=== PATIENT | female | born 1970 | race Caucasian/White ===

== ENCOUNTER 2017-05-07 14:53 | Inpatient (IN) ==
[2017-05-07] MEDS ORDERED: 0.9 % SODIUM CHLORIDE 2,000 ML IV ONE (14:59)
[2017-05-07] MEDS ORDERED: PANTOPRAZOLE 40 MG VIAL IV ONE (14:59)
[2017-05-07] MEDS ORDERED: 0.9 % SODIUM CHLORIDE 250 ML IV SCH ×3 (15:00→18:30)
[2017-05-07] MEDS ORDERED: PANTOPRAZOLE 80 MG in 0.9 % SODIUM CHLORIDE 100 ML IV SCH (15:00)
[2017-05-07 15:48] LABS: Basophils # (Auto) 0 K/mcL (0.0-0.3); Basophils % (Auto) 0.1 % (0.0-2.0); Eosinophils # (Auto) 0.1 K/mcL (0.0-0.7); Eosinophils % (Auto) 0.7 % (0.0-7.0); Granulocytes % (Auto) 79.1 % (38.0-78.0); Lymphocytes # (Auto) 1.9 K/mcL (1.5-4.8); Lymphocytes % (Auto) 14.4 % (15.5-49.0); Mean Cell Volume 62.1 fL (80.0-100.0); Mean Corpuscular HGB Conc 30.2 g/dL (31.0-36.0); Mean Corpuscular Hemoglobin 18.7 pg (26.0-34.0); Monocytes # (Auto) 0.8 K/mcL (0.1-0.9); Monocytes % (Auto) 5.7 % (1.0-12.0); Platelet Count 267 K/mcL (140-440); Red Cell Distribution Width 26.3 % (11.5-14.5)
[2017-05-07 15:59] LABS: ALT/SGPT 311 U/l (0-40); Albumin 3.4 gm/dL (3.2-5.2); Albumin/Globulin Ratio 1.2 (1.0-2.3); Alkaline Phosphatase 96 U/L (39-117); Blood Urea Nitrogen 37 mg/dl (6-20); Lipase 119 U/L (7-60); Magnesium 2.2 mg/dL (1.6-2.5)
--- NOTE | 2017-05-07 16:10 | Emergency Department Note ---
GI Bleed HPI - General Chief complaint: Rectal Bleed Stated complaint: blood in stool,coughed up blood Time Seen by Provider: 05/07/17 14:58 Source: patient Mode of arrival: wheelchair Limitations: no limitations - History of Present Illness HPI Narrative: This 47-year-old patient was sent over by Solomon Dent at urgent care for an upper GI bleed. She was examined over there found to be pale with black stool Hemoccult positive. complaining of fatigue decreased energy and melena 5 days. Short of breath noted with some swelling in her feet and ankles. She reports vomiting up some blood clots 5 days ago as well-none since. She denies significant alcohol use saying she only drinks perhaps once per year and only takes NSAIDs every once in a while - Related Data Home Medications Medication Instructions Recorded Confirmed No Known Home Meds [No Known Home 05/07/17 05/07/17 Meds] Allergies Allergy/AdvReac Type Severity Reaction Status Date / Time Sulfa (Sulfonamide AdvReac Severe throat Verified 05/07/17 14:31 Antibiotics) swelling Review of Systems All systems ED: reviewed and negative except as stated. Past Medical History - Past Medical History Attestation: Yes: The following information was validated with the patient. Medical history: Reports: no medical history Surgical history ED: Reports: no surgical history - Social History smoking status: Current every day smoker (vapes) Alcohol use: Reports: Rarely Physical Exam Thin profoundly pale female weak and fatigued, frail and chronically ill- appearing. No acute distress. Normocephalic atraumatic. Conjunctive are clear sclerae nonicteric. No nasal discharge or congestion. Oropharynx pink and moist. Some gross hearing loss. Neck is supple without lymphadenopathy or thyromegaly. Heart is regular rhythm but tachycardic. No murmur appreciated. Lungs are clear to auscultation bilaterally without wheezes rales rhonchi or respiratory distress. Abdomen soft nontender nondistended. No peritoneal signs or guarding. Examination of the rectum shows circumferential hemorrhoid tags without current bleeding. Small amount of black stool/melena present at rectum. trace pedal edema bilaterally. Radial pulse +2 bounding. No dysarthria ataxia - General Limitations: no limitations Course Vital Signs Temperature 97.4 F 05/07/17 14:54 Pulse Rate 125 H 05/07/17 14:54 Respiratory Rate 25 H 05/07/17 14:54 Blood Pressure 108/64 05/07/17 14:54 Pulse Oximetry (%) 100 05/07/17 14:54 Temperature 97.4 F 05/07/17 14:54 Pulse Rate 109 H 05/07/17 16:29 Respiratory Rate 24 H 05/07/17 16:29 Blood Pressure 123/80 05/07/17 16:29 Pulse Oximetry (%) 100 05/07/17 16:29 GI Bleed - Lab Data Lab results reviewed: Yes I reviewed the patient's lab results. Result diagrams: 05/07/17 15:10 05/07/17 15:10 Lab Results 05/07/17 05/07/17 05/07/17 Range/Units 15:10 15:10 15:10 WBC 13.5 H (4.5-11.0) K/mcL RBC 1.80 L (4.00-5.20) M/mcL Hgb 3.4 L* (12.0-15.0) g/dL Hct 11.2 L* (36.0-48.0) % POC Hct < 15.0 L* (36.0-48.0) % MCV 62.1 L (80.0-100.0) fL MCH 18.7 L (26.0-34.0) pg MCHC 30.2 L (31.0-36.0) g/dL RDW 26.3 H (11.5-14.5) % Plt Count 267 (140-440) K/mcL MPV 9.8 (7.4-10.4) fL Gran % 79.1 H (38.0-78.0) % Lymph % (Auto) 14.4 L (15.5-49.0) % Platte % (Auto) 5.7 (1.0-12.0) % Eos % (Auto) 0.7 (0.0-7.0) % Baso % (Auto) 0.1 (0.0-2.0) % Gran # 10.7 H (1.8-8.0) K/mcL Lymph # (Auto) 1.9 (1.5-4.8) K/mcL Platte # (Auto) 0.8 (0.1-0.9) K/mcL Eos # (Auto) 0.1 (0.0-0.7) K/mcL Baso # (Auto) 0 (0.0-0.3) K/mcL POC PT (11.9-14.5) sec POC INR (0.9-1.2) VBG Lactic Acid 6.6 H* (0.5-2.2) mmol/L POC Sodium 125 L (133-145) mmol/L Sodium 122 L (133-145) mmol/L POC Potassium 4.0 (3.3-5.1) mmol/L Potassium 4.0 (3.3-5.1) mmol/L POC Chloride 92 L (96-108) mmol/L Chloride 87 L (96-108) mmol/L Carbon Dioxide 15 L (22-30) mmol/L POC Total CO2 18 L (22-30) mmol/L Anion Gap 20.0 H (8-16) POC BUN 39 H (6-20) mg/dl BUN 37 H (6-20) mg/dl Creatinine 0.6 (0.6-1.1) mg/dl POC Creatinine 0.5 L (0.6-1.1) mg/dl GFR Calculation 109 Glucose 333 H (70-105) mg/dL POC Glucose 306 H (70-105) mg/dL Calcium 7.7 L (8.6-10.4) mg/dl POC WB Ioniz Calcium 0.99 L (1.16-1.32) mmol/L Magnesium 2.2 (1.6-2.5) mg/dL Total Bilirubin 1.4 H (0.0-1.0) mg/dL AST 382 H (0-37) U/l ALT 311 H (0-40) U/l Alkaline Phosphatase 96 (39-117) U/L Total Protein 6.2 (5.9-8.4) gm/dL Albumin 3.4 (3.2-5.2) gm/dL Globulin 2.8 (2.2-3.7) gm/dL Albumin/Globulin Ratio 1.2 (1.0-2.3) Lipase 119 H (7-60) U/L 05/07/17 Range/Units 16:14 WBC (4.5-11.0) K/mcL RBC (4.00-5.20) M/mcL Hgb (12.0-15.0) g/dL Hct (36.0-48.0) % POC Hct (36.0-48.0) % MCV (80.0-100.0) fL MCH (26.0-34.0) pg MCHC (31.0-36.0) g/dL RDW (11.5-14.5) % Plt Count (140-440) K/mcL MPV (7.4-10.4) fL Gran % (38.0-78.0) % Lymph % (Auto) (15.5-49.0) % Platte % (Auto) (1.0-12.0) % Eos % (Auto) (0.0-7.0) % Baso % (Auto) (0.0-2.0) % Gran # (1.8-8.0) K/mcL Lymph # (Auto) (1.5-4.8) K/mcL Platte # (Auto) (0.1-0.9) K/mcL Eos # (Auto) (0.0-0.7) K/mcL Baso # (Auto) (0.0-0.3) K/mcL POC PT 16.1 H (11.9-14.5) sec POC INR 1.4 H (0.9-1.2) VBG Lactic Acid (0.5-2.2) mmol/L POC Sodium (133-145) mmol/L Sodium (133-145) mmol/L POC Potassium (3.3-5.1) mmol/L Potassium (3.3-5.1) mmol/L POC Chloride (96-108) mmol/L Chloride (96-108) mmol/L Carbon Dioxide (22-30) mmol/L POC Total CO2 (22-30) mmol/L Anion Gap (8-16) POC BUN (6-20) mg/dl BUN (6-20) mg/dl Creatinine (0.6-1.1) mg/dl POC Creatinine (0.6-1.1) mg/dl GFR Calculation Glucose (70-105) mg/dL POC Glucose (70-105) mg/dL Calcium (8.6-10.4) mg/dl POC WB Ioniz Calcium (1.16-1.32) mmol/L Magnesium (1.6-2.5) mg/dL Total Bilirubin (0.0-1.0) mg/dL AST (0-37) U/l ALT (0-40) U/l Alkaline Phosphatase (39-117) U/L Total Protein (5.9-8.4) gm/dL Albumin (3.2-5.2) gm/dL Globulin (2.2-3.7) gm/dL Albumin/Globulin Ratio (1.0-2.3) Lipase (7-60) U/L - EKG Data EKG attestation: Yes I reviewed and interpreted this EKG. EKG results narrative: EKG shows sinus tachycardia 115 with an abnormal R-wave progression. Mildly long QT Critical Care Time Critical Care Time: Yes Total Critical Care Time: 30 Attestation: A total of 30 additional critical care time minutes in addition to initial evaluation and treatment. Did serial exams on her as well. That time includes examinations, orders, documentation, care coordination and treatment. I was immediately available the entire time of her hospital stay Disposition Pt seen by HOSPICE HOME HEALTH AIDE/PA only: No Clinical Impression: Upper gastrointestinal hemorrhage, Acute hyperglycemia Summary: Initially worked up for upper GI bleed with laboratory. IV fluids started . blood was ordered secondary to her extreme pallor and fatigue, along with tachypnea and tachycardia. CT scan was initially ordered but canceled after laboratory came back because of the need for resuscitation and possible urgent endoscopy (she would have had to have oral contrast for optimum imaging) O- blood was started secondary to her extreme low hemoglobin. MCV argues for acute on chronic upper GI hemorrhage. Blood pressure is stable but she is tachycardic and tachypneic which is concerning. She did have a piece of toast this morning Blood sugars also elevated-she does not have a history of diabetes. Not requiring insulin at this point Discussed case with Dr. Liao, porcelain enamel laborer, who agreed to consult on the patient after resuscitation Discussed case with Dr. Humaira Dye, hospitalist, who agreed to accept patient for further care. On repeat exam she is getting some color back with blood transfusion-continues to have stable vitals Disposition: Xfer As Inpt ([facility]) Condition: Critical
[2017-05-07] MEDS ORDERED: MIDAZOLAM 2 MG/2 ML VIAL IV SCH (17:00)
[2017-05-07] MEDS ORDERED: PROPOFOL 200 MG/20 ML VIAL IV SCH (17:00)
[2017-05-07] MEDS ORDERED: PROPOFOL 20 ML IV ONE (17:08)
[2017-05-07] MEDS ORDERED: MIDAZOLAM 2 MG/2 ML VIAL ONE (17:09)
[2017-05-07] MEDS ORDERED: NALOXONE HCL 0.4 MG/ML VIAL IV PRN (17:18)
[2017-05-07] MEDS ORDERED: LORazepam 2 MG/ML VIAL IV PRN (17:18)
[2017-05-07] MEDS ORDERED: DEXTROSE 50% 50 ML VIAL IV PRN (17:18)
[2017-05-07] MEDS ORDERED: NOREPINEPHRINE BITARTRATE 16 MG in 0.9 % SODIUM CHLORIDE 234 ML IV PRN (17:18)
[2017-05-07] MEDS ORDERED: MAGNESIUM HYDROXIDE 30 ML ORAL.SUSP PO PRN (17:18)
[2017-05-07] MEDS: MIDAZOLAM 2 MG/2 ML VIAL IV SCH ×2 (17:35→19:14)
[2017-05-07] MEDS: PROPOFOL 200 MG/20 ML VIAL IV SCH ×2 (17:35→19:14)
--- NOTE | 2017-05-07 17:57 | Internal Med History&Physical ---
Medical - H&P: HPI Patient information: Note initiated : 05/07/17 at 5:52 pm Service Date, if different from initiated Date: [] Patient: Rona Rees a 47 y/o F admitted on for Blood In Stool, Coughed Up Blood. Chief Complaint: [] History of present illness: Ms. Rees is a 47 year old female with no known significant past medical problems. She reports that she has had some intermittent stomach discomfort since about November of this year. She is not sure if she might of had black stools in the past, but does not recall black or bloody stools. 4 days ago, she started to have severe vomiting. She says she vomited violently about 9 times. Each time she brought up bright red blood. She says that she felt very weak afterwards, but was home alone, and did not want to bother her father, who was on a hunting trip. She felt too weak to drive herself to the emergency room, so she waited until he got home today, and had him bring her in. ER evaluation showed tachycardia, tachypnea, hemoglobin of 3, MCV of 62, elevated lactic acid , marked hyperglycemia. The patient was resuscitated with fluids and O- blood in the ER, and then transferred to the intensive care unit. The patient denies the use of NSAIDs or aspirin. She drinks alcohol extremely rarely. She previously smoked from age 22 until age 45, and then quit 2 years ago. She does currently smoke E cigarettes. She does not use drugs. She otherwise notes she is cold all the time. She has had some mild shortness of breath on and off for several months. She notes only occasional upper abdominal discomfort, but no nausea and no vomiting until last weekend. She says she did have some sinus symptoms about 2 weeks ago, and went to see someone who prescribed doxycycline for possible sinus infection. He has been quite fatigued, and says she can hear the blood rushing in her ears at times. She has been feeling a little dizzy. She denies headaches, new eye or ear symptoms, sore throat or cough. He denies chest pain or palpitations. She denies dysuria. Past medical history: Patient went through premature menopause at age 26. she is unaware of any chronic medical problems. Medications: B12 Occasional antihistamines Allergies: Sulfa Family history: Her father has a history of diabetes. Her mother 4 years ago with Parkinson's disease and dementia. One sister has diabetes. Another sister is alive and well. Social history: Patient is single and lives with her father. She smoked from the age of 22 until about age 45, quitting 2 years ago. She currently smokes E cigarettes, which she says she puts some sort of essence of tobacco into. She drinks alcohol extremely rarely. She does not use drugs. She does not have children. Medical - H&P: Meds Home Medications Medication Instructions Recorded Confirmed Type No Known Home Meds [No Known Home 05/07/17 05/07/17 History Meds] Allergies Allergy/AdvReac Type Severity Reaction Status Date / Time Sulfa (Sulfonamide AdvReac Severe throat Verified 05/07/17 14:31 Antibiotics) swelling Medical - H&P: Exam - Constitutional Vitals: Temp Pulse Resp BP Pulse Ox 98.9 F 113 H 26 H 135/89 100 05/07/17 17:18 05/07/17 17:18 05/07/17 17:18 05/07/17 17:18 05/07/17 17:18 Heart rate ranges from 110 -125. Blood pressure on arrival was 108/64, currently 130/86. Temperature 97.4. Respiratory rate ranges from 13-25. O2 saturation is 100% on room air. Patient is very pale, and appears fatigued. Head: Normocephalic, atraumatic. Eyes: PERRLA, EOMI, anicteric. Ears:clear Pharynx: Teeth are in good repair. Neck: Is supple, without obvious JVD, lymphadenopathy, thyromegaly, bruits. Cardiac exam: Shows regular rate and rhythm with normal S1 and S2. Tachycardic rate. No murmurs are noted. Lungs: Are clear to auscultation, without rales, rhonchi, wheezes. Abdomen: Appears slightly distended, but is soft. She has mild epigastric tenderness. There is no guarding or rebound. Bowel sounds are hypoactive. Extremities: Show no cyanosis, clubbing, edema. neurologic: She is awake and alert, calm and cooperative. Motor exam is grossly nonfocal. Skin exam: Does not show any worrisome lesions. Medical - H&P: Reslt - Labs CBC & Chem 7: 05/08/17 10:35 05/08/17 04:15 Labs: Short CBC 10/12/17 Range/Units 15:10 WBC 13.5 H (4.5-11.0) K/mcL Hgb 3.4 L* (12.0-15.0) g/dL Hct 11.2 L* (36.0-48.0) % Plt Count 267 (140-440) K/mcL BMP 05/07/17 15:10 Sodium 122 L Potassium 4.0 Chloride 87 L Carbon Dioxide 15 L BUN 37 H Creatinine 0.6 Glucose 333 H Calcium 7.7 L Liver Function 05/07/17 Range/Units 15:10 Total Bilirubin 1.4 H (0.0-1.0) mg/dL AST 382 H (0-37) U/l ALT 311 H (0-40) U/l Alkaline Phosphatase 96 (39-117) U/L Albumin 3.4 (3.2-5.2) gm/dL May 07: Blood cell count is 13,500, hemoglobin 3.4, hematocrit 11.2, RDW 26, platelets 267,000. Differential shows 79% granulocytes absolute granulocyte count 10,700. Pro time is 16 with INR of 1.4 next Lactic acid is elevated at 6.6 Chemistry panel: Sodium is 122, potassium 4.0, chloride 87, CO2 15, anion gap 20 , BUN 37, creatinine 0.6, glucose 333. Calcium is 7.7, ionized calcium 0.99, magnesium 2.2 Total bilirubin is 1.4, AST 382, ALT 311, alk phos 96 Albumin 3.4, lipase 119 EKG shows sinus tachycardia at a rate of about 110. Small Q's are noted inferiorly. Medical - H&P: A/P (1) Esophageal varices determined by endoscopy Current visit: No Status: Acute (2) Hepatitis Current visit: No Status: Acute (3) Lactic acidosis Current visit: No Status: Acute (4) Hyponatremia Current visit: No Status: Acute (5) Microcytic anemia Current visit: No Status: Chronic (6) Upper gastrointestinal hemorrhage Current visit: No Status: Acute (7) Acute hyperglycemia Current visit: No Status: Acute - Narrative A/P Narrative: #1. GI. Patient presents with acute upper GI hemorrhage. Apparent cause is bleeding esophageal varices. She has been admitted to the intensive care unit, and GI has already done an endoscopy. Dr. Escobar is now in the process of banding of esophageal varices. -Admit to ICU, close monitoring. -She is receiving IV normal saline in addition to O- blood. -Type and cross for 4 more units, transfuse 2 units and stay 2 units ahead. -Lab picture is suggestive of chronic hepatitis. Differential diagnosis is wide , but includes hepatitis C, autoimmune hepatitis, etc. -Octreotide drip. -IV Protonix. #2. Endocrine. Patient presents with apparent diabetes with severe hyperglycemia. New-onset. -IV insulin. -Accu-Cheks and sliding scale insulin. -Check hemoglobin A1c. -diabetes education. 3. Hyponatremia. Probably pseudohyponatremia, due to hyperglycemia. Continue to monitor. 4. Hypovolemic shock. Patient presents with severe blood loss anemia, tachycardia, lactic acidosis. -Aggressive fluid resuscitation and transfusion. She is responding well at this time. -Vasopressors as needed. Next 5. CODE STATUS: Full code. She says her father will act as her POA. 6. DVT prophylaxis: SCDs. Approximately 70 minutes was spent so far, reviewing the case with the ER MD as well as with GI, interviewing and examining her, and writing orders Medical - H&P: Qual - VTE Deep Vein Thrombosis/Pulmonary Embolism Present on Admission: No
[2017-05-07] MEDS: OCTREOTIDE ACETATE 500 MCG in 0.9 % SODIUM CHLORIDE 495 ML IV SCH (19:50)
[2017-05-07] MEDS: 0.9 % SODIUM CHLORIDE 1,000 ML IV SCH (20:04)
[2017-05-07] MEDS: PANTOPRAZOLE 80 MG in 0.9 % SODIUM CHLORIDE 100 ML IV SCH (20:06)
[2017-05-07] MEDS: INSULIN LISPRO 1 UNIT/0.01 ML UNIT SQ SCH (20:07)
[2017-05-07] MEDS: 0.9 % SODIUM CHLORIDE 10 ML SYRINGE IV SCH (21:56)
[2017-05-08] MEDS: INSULIN LISPRO 1 UNIT/0.01 ML UNIT SQ SCH ×6 (00:15→20:58)
[2017-05-08] MEDS: PANTOPRAZOLE 80 MG in 0.9 % SODIUM CHLORIDE 100 ML IV SCH ×4 (00:35→23:56)
[2017-05-08 01:46] LABS: Appearance,Urine CLEAR; Bacteria,Urine FEW /hpf (0); Bilirubin,Urine NEG (NEG); Color,Urine YELLOW; Glucose,Urine (UA) >=500 mg/dL (NEG); Leukocyte Esterase,Urine NEG /uL (NEG); Mucus,Urine FEW /hpf (0); Nitrate,Urine NEG (NEG); Protein,Urine NEG (NEG); Specific Gravity,Urine 1.018 (1.000-1.035); Urine Blood NEG mg/dL (<0.03); Urine RBC 1 /hpf (0-1); Urine Squamous Epithelial Cell < 1 /hpf (0-4); Urine WBC 1 /hpf (0-4)
[2017-05-08] MEDS: 0.9 % SODIUM CHLORIDE 1,000 ML IV SCH ×3 (04:59→23:56)
[2017-05-08] MEDS: 0.9 % SODIUM CHLORIDE 10 ML SYRINGE IV SCH ×3 (05:43→20:59)
[2017-05-08 06:49] LABS: Basophils # (Auto) 0 K/mcL (0.0-0.3); Basophils % (Auto) 0.1 % (0.0-2.0); Eosinophils # (Auto) 0.1 K/mcL (0.0-0.7); Eosinophils % (Auto) 1.6 % (0.0-7.0); Granulocytes % (Auto) 65.5 % (38.0-78.0); Lymphocytes # (Auto) 1.7 K/mcL (1.5-4.8); Lymphocytes % (Auto) 25.3 % (15.5-49.0); Mean Cell Volume 76.2 fL (80.0-100.0); Mean Corpuscular HGB Conc 33.2 g/dL (31.0-36.0); Mean Corpuscular Hemoglobin 25.3 pg (26.0-34.0); Monocytes # (Auto) 0.5 K/mcL (0.1-0.9); Monocytes % (Auto) 7.5 % (1.0-12.0); Platelet Count 106 K/mcL (140-440); RBC 3.39 M/mcL (4.00-5.20); Red Cell Distribution Width 25.6 % (11.5-14.5)
[2017-05-08] MEDS: OCTREOTIDE ACETATE 500 MCG in 0.9 % SODIUM CHLORIDE 495 ML IV SCH ×3 (07:00→23:56)
[2017-05-08 07:02] LABS: ALT/SGPT 253 U/l (0-40); Albumin/Globulin Ratio 1.3 (1.0-2.3); Alkaline Phosphatase 87 U/L (39-117); Bilirubin,Direct 2.4 mg/dL (0.0-0.3); Blood Urea Nitrogen 20 mg/dl (6-20); Gamma Glutamyl Transpeptidase 95 U/L (5-36); Magnesium 1.9 mg/dL (1.6-2.5); Uric Acid 5.1 mg/dL (2.5-8.0)
[2017-05-08] MEDS ORDERED: DEXTROSE 50% 50 ML VIAL IV PRN (07:43)
--- NOTE | 2017-05-08 07:58 | Operative Note ---
DATE OF OPERATION: 05/07/2017 PREOPERATIVE DIAGNOSIS: Profound anemia with recent gross hematemesis. POSTOPERATIVE DIAGNOSIS: Four columns of grade III esophageal varices with red antoine markings suggesting recent bleeding, but no gross blood in the upper GI tract and no gastric varices. Multiple variceal banding ligations performed. 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 HISTORY OF PRESENT ILLNESS: Patient presents to the Emergency Room with weakness and profound anemia. Hemoglobin was 3.5 with MCV 62 on presentation. She denies any history of significant bleeding up until about a month ago when she started having black stool. She did not see any significance to the black stool and did not seek any medical care. Then, 4 days ago on Thursday05/03/2017 while at home, she had several episodes of hematemesis which included a large amount of fresh bright red blood initially and then several episodes of coffee ground material vomited throughout the remainder that day. She has not had any hematemesis since then but has had melena for 4 days since then. She was at home alone. Apparently her family was out hunting or something and she did not seek medical care until I her believe her father came back home and brought her to the Emergency Room. When she presented to the Emergency Room, she had become dyspneic on exertion with extreme pallor on examination. No abdominal pain. The patient is not on any medications. She uses nonsteroidals rarely, maybe a couple of times a year. She does not drink alcohol except maybe once a year. Her liver chemistries are noted to be elevated on presentation with AST 382, ALT 311 and total bilirubin 1.4 and alkaline phosphatase normal. Lactic acid was markedly elevated at 6.6, lipase 119, about 2 times normal, although she has no abdominal pain. Hemoglobin was 3.5, MCV 62. INR 1.4, BUN 37, creatinine 0.6. White count 13,500, hemoglobin 33.5, platelets 267,000, MCV 62, glucose 333, no prior history of diabetes. Microcytic anemia would speak to chronic blood loss. The patient has not had any menstrual bleeding since age 26. CONSENT: Prior to the procedure the patient provided her own informed consent. The patient was evaluated and considered medically fit for endoscopy. DESCRIPTION OF PROCEDURE: With the patient in the left lateral decubitus position in the Intensive Care Unit with the first couple of units of blood hanging a gastroscope was advanced via the mouth to the esophagus under direct vision. The esophagus is immediately obviously abnormal with the presence of 4 columns of grade III varices. Distally the varices are characterized by red antoine vallejo suggesting recent hemorrhage, although I did not see any clots or fresh blood anywhere in the upper GI tract. The stomach was endoscopically normal with no gastric varices identified. The duodenum was normal to the second portion. The scope was removed and a variceal banding ligating unit was applied to the tip of the scope. The scope was reinserted. I advanced the scope to the distal esophagus and placed a total of 6 bands beginning distally and making my way more proximally. There were no misfires and no significant bleeding induced by the banding. COMPLICATIONS: None immediate. RECOMMENDATIONS AND FOLLOWUP: 1. Full liquid diet for the next 24 hours. 2. Octreotide 50 mcg bolus followed by 50 mcg per hour drip for the next 48 to 72 hours. 3. Ultimately we will probably recommend nadolol 20 mg daily. 4. The patient may have chest pain following the multiple band ligations in which case narcotic therapy would be advised, perhaps over the next 24 to 48 hours before the pain would be anticipated to significantly dissipate. 5. Recommend serologic workup to begin for the diagnosis of cirrhosis. Recommend acute hepatitis panel for hepatitis A, B and C. Also, ANGELO, antimitochondrial antibody, smooth muscle antibody titer, alpha 1 antitrypsin phenotype, and ceruloplasmin. Measure alpha fetoprotein at baseline. The patient apparently has newly diagnosed diabetes in that she has glucose of 333 on presentation. She will need primary care provider established. Also, we will ultimately have to think about possible liver transplantation evaluation in the upcoming future. JERAMY:neeta Job ID: [id number] Doc ID: [id number] Drew Liao MD
[2017-05-08] MEDS: HYDROmorphone 2 MG/ML SYRINGE IV PRN ×2 (08:14→18:59)
[2017-05-08] MEDS ORDERED: FUROSEMIDE 20 MG/2 ML VIAL IV ONE (10:28)
[2017-05-08] MEDS ORDERED: POTASSIUM CHLORIDE 40 MEQ in DEXTROSE 5% IN WATER 500 ML IV ONE (10:29)
[2017-05-08] MEDS: ONDANSETRON 4 MG/2 ML VIAL IV PRN ×3 (10:49→19:50)
--- NOTE | 2017-05-08 11:22 | Internal Med Progress Note ---
Medical - PN: Subj Patient information: Note initiated : 05/08/17 at 11:21 am Service Date, if different from initiated Date: [] Patient: Rona Rees a 47 y/o F admitted on 05/07/17 for Blood In Stool, Coughed Up Blood. Chief Complaint: [] Interval history: May 07, 2013: History of present illness: Ms. Rees is a 47 year old female with no known significant past medical problems. She reports that she has had some intermittent stomach discomfort since about November of this year. She is not sure if she might of had black stools in the past, but does not recall black or bloody stools. 4 days ago, she started to have severe vomiting. She says she vomited violently about 9 times. Each time she brought up bright red blood. She says that she felt very weak afterwards, but was home alone, and did not want to bother her father, who was on a hunting trip. She felt too weak to drive herself to the emergency room, so she waited until he got home today, and had him bring her in. ER evaluation showed tachycardia, tachypnea, hemoglobin of 3, MCV of 62, elevated lactic acid , marked hyperglycemia. The patient was resuscitated with fluids and O- blood in the ER, and then transferred to the intensive care unit. The patient denies the use of NSAIDs or aspirin. She drinks alcohol extremely rarely. She previously smoked from age 22 until age 45, and then quit 2 years ago. She does currently smoke E cigarettes. She does not use drugs. She otherwise notes she is cold all the time. She has had some mild shortness of breath on and off for several months. She notes only occasional upper abdominal discomfort, but no nausea and no vomiting until last weekend. She says she did have some sinus symptoms about 2 weeks ago, and went to see someone who prescribed doxycycline for possible sinus infection. He has been quite fatigued, and says she can hear the blood rushing in her ears at times. She has been feeling a little dizzy. She denies headaches, new eye or ear symptoms, sore throat or cough. He denies chest pain or palpitations. She denies dysuris May 08: The patient received a total of 4 units of blood overnight. Hemoglobin is getting closer to normal this morning. Today, she says she is feeling a bit better. She is having a fair amount of epigastric and substernal chest discomfort since the esophageal banding. Dilaudid helps with the pain, but makes her feel very groggy. She did try to eat some Jell-O this morning, but then vomited up a small amount. Did have a melanotic stool this morning. Otherwise, she denies fever chills, headaches or dizziness, palpitations or shortness of breath, diarrhea or constipation, dysuria. Next She is quizzed more closely about her medical history today. She was seeing a Dr. Quiles about 10 years ago. She says she did develop some kind of liver problem after taking a diet medicine called metabolite. She says he treated her with a liquid diet for a while and it seemed to go away. She said there were a couple of years about 20 years ago where she used to drink heavily on the weekends, but none since then. She denies ever using any sort of drugs or being sexually active with a known drug user. Her nurse notes that her urine output has dropped off quite a bit over the last couple of hours. Patient is receiving about 160 mL an hour of fluids and medications. Potassium was also low this morning. - Constitutional Vitals: Vital Signs Temp Pulse Resp BP Pulse Ox 98.8 F 94 H 15 110/81 98 05/08/17 08:00 05/08/17 08:00 05/08/17 08:00 05/08/17 08:00 05/08/17 08:00 Period Temp Pulse Resp BP Sys/Ybarra Pulse Ox Last 24 Hr 97.4 F-98.9 F 94-125 11-28 108-161/64-108 98-100 Intake and Output 05/07/17 05/08/17 05/08/17 21:59 05:59 13:59 Intake Total 2375 / 2375 82 / 82 746 / 746 Output Total 950 / 950 1430 / 1430 280 / 280 Balance 1425 / 1425 -1348 / -1348 466 / 466 Weight 124 lb 8 oz Intake & Output: Intake & Output 05/07/17 05/08/17 05/08/17 21:59 05:59 13:59 Intake Total 2375 / 2375 82 / 82 746 / 746 Output Total 950 / 950 1430 / 1430 280 / 280 Balance 1425 / 1425 -1348 / -1348 466 / 466 Weight 124 lb 8 oz Intake: IV 2049 / 2049 82 / 82 746 / 746 Sodium Chloride 0.9% 2,000 ml @ 1782 / 1782 Wide Open IV .Q0M ONE Rx#: [id number] Sodium Chloride 0.9% 250 ml @ 15 / 15 20 mls/hr IV .[id number] [facility] Rx#: [id number] Sandostatin 500 Mcg In Sodium 500 / 500 Chloride 0.9% 495 ml @ 50 MCG/ HR 50 mls/hr IV Q20H [facility] Rx#: [id number] Protonix 80 mg In Sodium 18 / 18 Chloride 0.9% 100 ml @ 8 MG/HR 10 mls/hr IV Q10H [facility] Rx#: [id number] Blood Product 325 / 325 Output: Urine Catheter Amount 400 / 400 1330 / 1330 280 / 280 Void Amount 550 / 550 100 / 100 Other: # Bowel Movements 1 On exam, her color is much improved today. She is not as pale. Neck is supple without obvious lymphadenopathy or JVD. Cardiac exam shows regular rate and rhythm. Lungs are clear to auscultation. Abdomen has some tenderness in the epigastric area, but no guarding or rebound. Bowel sounds are rather quiet. Extremities show no edema. Neurologic exam is grossly nonfocal. Medical - PN: Obj Da - Labs CBC & Chem 7: 05/08/17 10:35 05/08/17 04:15 Labs: Abnormal Lab Results 05/08/17 05/08/17 05/08/17 06:20 04:15 04:15 WBC RBC 3.39 L Hgb 8.5 L 8.6 L Hct 25.4 L 25.8 L POC Hct MCV 76.2 L MCH 25.3 L MCHC RDW 25.6 H Plt Count 106 L Gran % Lymph % (Auto) Gran # POC PT POC INR VBG Lactic Acid POC Sodium Sodium 128 L Potassium 3.2 L POC Chloride Chloride 95 L Carbon Dioxide POC Total CO2 Anion Gap POC BUN BUN Creatinine 0.4 L POC Creatinine Glucose 136 H POC Glucose Calcium 7.1 L POC WB Ioniz Calcium Phosphorus 1.8 L Total Bilirubin 5.8 H Direct Bilirubin 2.4 H GGT 95 H AST 291 H ALT 253 H Lactate Dehydrogenase 277 H Total Protein 5.3 L Albumin 3.0 L Lipase Urine Glucose (UA) Urine Ketones Urine Urobilinogen Urine Bacteria 05/08/17 05/07/17 05/07/17 02:24 22:08 21:43 WBC RBC Hgb 9.0 L 9.1 L Hct 27.1 L 27.9 L POC Hct MCV MCH MCHC RDW Plt Count Gran % Lymph % (Auto) Gran # POC PT POC INR VBG Lactic Acid POC Sodium Sodium Potassium POC Chloride Chloride Carbon Dioxide POC Total CO2 Anion Gap POC BUN BUN Creatinine POC Creatinine Glucose POC Glucose Calcium POC WB Ioniz Calcium Phosphorus Total Bilirubin Direct Bilirubin GGT AST ALT Lactate Dehydrogenase Total Protein Albumin Lipase Urine Glucose (UA) >=500 A Urine Ketones 20 A Urine Urobilinogen 4.0 A Urine Bacteria Few A 05/07/17 05/07/17 05/07/17 16:14 15:10 15:10 WBC RBC Hgb Hct POC Hct < 15.0 L* MCV MCH MCHC RDW Plt Count Gran % Lymph % (Auto) Gran # POC PT 16.1 H POC INR 1.4 H VBG Lactic Acid 6.6 H* POC Sodium 125 L Sodium 122 L Potassium POC Chloride 92 L Chloride 87 L Carbon Dioxide 15 L POC Total CO2 18 L Anion Gap 20.0 H POC BUN 39 H BUN 37 H Creatinine POC Creatinine 0.5 L Glucose 333 H POC Glucose 306 H Calcium 7.7 L POC WB Ioniz Calcium 0.99 L Phosphorus Total Bilirubin 1.4 H Direct Bilirubin GGT AST 382 H ALT 311 H Lactate Dehydrogenase Total Protein Albumin Lipase 119 H Urine Glucose (UA) Urine Ketones Urine Urobilinogen Urine Bacteria 05/07/17 15:10 WBC 13.5 H RBC 1.80 L Hgb 3.4 L* Hct 11.2 L* POC Hct MCV 62.1 L MCH 18.7 L MCHC 30.2 L RDW 26.3 H Plt Count Gran % 79.1 H Lymph % (Auto) 14.4 L Gran # 10.7 H POC PT POC INR VBG Lactic Acid POC Sodium Sodium Potassium POC Chloride Chloride Carbon Dioxide POC Total CO2 Anion Gap POC BUN BUN Creatinine POC Creatinine Glucose POC Glucose Calcium POC WB Ioniz Calcium Phosphorus Total Bilirubin Direct Bilirubin GGT AST ALT Lactate Dehydrogenase Total Protein Albumin Lipase Urine Glucose (UA) Urine Ketones Urine Urobilinogen Urine Bacteria May 07: Urinalysis: Close greater than 500, ketones 20, urobilinogen 4.0, negative nitrites and leukocyte esterase Blood cell count is 13,500, hemoglobin 3.4, hematocrit 11.2, RDW 26, platelets 267,000. Differential shows 79% granulocytes absolute granulocyte count 10,700. Pro time is 16 with INR of 1.4 next Lactic acid is elevated at 6.6 Chemistry panel: Sodium is 122, potassium 4.0, chloride 87, CO2 15, anion gap 20 , BUN 37, creatinine 0.6, glucose 333. Calcium is 7.7, ionized calcium 0.99, magnesium 2.2 Total bilirubin is 1.4, AST 382, ALT 311, alk phos 96 Albumin 3.4, lipase 119 EKG shows sinus tachycardia at a rate of about 110. Small Q's are noted inferiorly. Meds: Medications Dextrose (Dextrose 50%) 0 ml IV UD PRN PRN Reason: Hypoglycemia Dextrose (Dextrose 50%) 0 ml IV UD PRN PRN Reason: Hypoglycemia Diagnostic Test (Pha) (Accu-Chek) 1 each FS ACHS [facility] Last Admin: 05/08/17 08:15 Dose: 1 each Hydromorphone HCl (Dilaudid) 0.5 mg IV Q4-6HP PRN PRN Reason: Pain Last Admin: 05/08/17 08:14 Dose: 0.5 mg Pantoprazole Sodium 80 mg/ (Sodium Chloride) 100 mls @ 10 mls/hr IV Q10H [facility] PRN Reason: 8 MG/HR Last Admin: 05/08/17 04:59 Dose: Not Given Norepinephrine Bitartrate 16 (mg/ Sodium Chloride) 250 mls @ 9.37 mls/hr IV Q24HP PRN; Protocol; 10 MCG/MIN PRN Reason: TITRATE TO KEEP MAP > 65 Sodium Chloride (Sodium Chloride 0.9%) 1,000 mls @ 100 mls/hr IV .Q10H [facility] Last Admin: 05/08/17 04:59 Dose: Not Given Octreotide Acetate 500 mcg/ (Sodium Chloride) 500 mls @ 50 mls/hr IV Q20H [facility]; 50 MCG/HR PRN Reason: Protocol Last Admin: 05/08/17 07:00 Dose: 50 mcg/hr, 50 mls/hr Potassium Chloride 40 meq/ (Dextrose) 520 mls @ 130 mls/hr IV ONCE ONE Stop: 05/08/17 14:28 Last Admin: 05/08/17 10:49 Dose: 130 mls/hr Insulin Human Lispro (Humalog) 0 unit SQ ACHS [facility] PRN Reason: Protocol Last Admin: 05/08/17 08:17 Dose: Not Given Lorazepam (Ativan) 1 mg IV Q2HP PRN PRN Reason: ANXIETY/SEDATION Magnesium Hydroxide (Milk Of Magnesia) 30 ml PO DAILYP PRN PRN Reason: Constipation Morphine Sulfate (Morphine) 4 mg IV Q2HP PRN PRN Reason: Pain Last Admin: 05/08/17 05:42 Dose: 4 mg Naloxone HCl (Narcan) 0.1 mg IV Q2MIN PRN PRN Reason: Opiate Reversal Ondansetron HCl (Zofran) 4 mg IV Q4-6HP PRN PRN Reason: Nausea And Vomiting Last Admin: 05/08/17 10:49 Dose: 4 mg Sodium Chloride (Saline Flush) 10 ml IV Q8 [facility] Last Admin: 05/08/17 05:43 Dose: Not Given Medical - PN: A/P - Time Spent With Patient Total time spent is greater than 50% in coordination of care (as documented) at patient's floor/unit and/or counseling patient: Greater than 35 minutes (1) Esophageal varices determined by endoscopy Status: Acute Current Visit: No (2) Hepatitis Status: Acute Current Visit: No (3) Lactic acidosis Status: Acute Current Visit: No (4) Hyponatremia Status: Acute Current Visit: No (5) Microcytic anemia Status: Chronic Current Visit: No (6) Upper gastrointestinal hemorrhage Status: Acute Current Visit: No (7) Acute hyperglycemia Status: Acute Current Visit: No - Narrative A/P Narrative: #1. GI. Patient presents with acute upper GI hemorrhage. Apparent cause is bleeding esophageal varices. She has been admitted to the intensive care unit, and GI has already done an endoscopy. Dr. Escobar is now in the process of banding of esophageal varices. -The patient is currently on an octreotide drip. She is also receiving IV Protonix. -Hemoglobin seems to be stabilizing around 8.0. -Today, the patient notes that she seemed to develop liver problems in the past after taking a weight loss drug called metabolite. We have requested those records from her previous primary care doctor, Dr. Quiles. -Autoimmune workup is in progress. -Followed by Dr. Escobar. #2. Endocrine. Patient presents with apparent diabetes with severe hyperglycemia. New-onset. -Patient presented with severe hyperglycemia. Most recent glucoses are ranging from 90-131, while on an insulin sliding scale, and with minimal oral intake. -Continue to monitor. -Accu-Cheks and sliding scale insulin. -Check hemoglobin A1c. -diabetes education. 3. Hyponatremia. Probably pseudohyponatremia, due to hyperglycemia. Improving. 4. Hypovolemic shock. Patient presents with severe blood loss anemia, tachycardia, lactic acidosis. -Aggressive fluid resuscitation and transfusion. She is responding well at this time. -Vasopressors as needed. -Recheck lactic acid level. 5. CODE STATUS: Full code. She says her father will act as her POA. 6. DVT prophylaxis: SCDs. Medical - PN: Qual - VTE Deep Vein Thrombosis/Pulmonary Embolism Present on Admission: No
[2017-05-08 13:41] LABS: Hemoglobin A1C 6.1 % HGB (4.0-6.0)
--- NOTE | 2017-05-08 22:33 | Internal Med Progress Note ---
Medical - PN: Subj Patient information: Note initiated : 05/08/17 at 10:30 pm Service Date, if different from initiated Date: [] Patient: Rona Rees a 47 y/o F admitted on 05/07/17 for Blood In Stool, Coughed Up Blood. Chief Complaint: [severe anemia due to acute gi bleed- foound to have large esoph varices which I banded last p.m .] Abrahamiht pt reports still has some epigastric and lower chest pain after esoph banding of varices. Had some melena still persisting. Little appetite. Pt tells me she used to drink EtOH on some weekends but not in past 20 years. She now drinks EtOH about once per year. - Constitutional Vitals: Vital Signs Temp Pulse Resp BP Pulse Ox 98.0 F 111 H 12 114/82 98 05/08/17 20:00 05/08/17 20:00 05/08/17 19:02 05/08/17 20:00 05/08/17 20:00 Period Temp Pulse Resp BP Sys/Ybarra Pulse Ox Last 24 Hr 98.0 F-98.8 F 72-111 9-20 104-135/78-97 96-100 Intake and Output 05/08/17 05/08/17 05/09/17 13:59 21:59 05:59 Intake Total 2188 / 2188 760 / 760 Output Total 1280 / 1280 1390 / 1390 Balance 908 / 908 -630 / -630 Weight 124 lb 8 oz 130 lb 11.2 oz Patient Weight 05/09/17 05:59 Weight 130 lb 11.2 oz Intake & Output: Intake & Output 05/08/17 05/08/17 05/09/17 13:59 21:59 05:59 Intake Total 2188 / 2188 760 / 760 Output Total 1280 / 1280 1390 / 1390 Balance 908 / 908 -630 / -630 Weight 124 lb 8 oz 130 lb 11.2 oz Intake: IV 2188 / 2188 520 / 520 Sodium Chloride 0.9% 1,000 ml @ 1000 / 1000 100 mls/hr IV .Q10H [facility] Rx#: [id number] Sandostatin 500 Mcg In Sodium 842 / 842 Chloride 0.9% 495 ml @ 50 MCG/ HR 50 mls/hr IV Q20H [facility] Rx#: [id number] Protonix 80 mg In Sodium 100 / 100 Chloride 0.9% 100 ml @ 8 MG/HR 10 mls/hr IV Q10H [facility] Rx#: [id number] Oral 240 / 240 Output: Urine Catheter Amount 1280 / 1280 1390 / 1390 Other: Meal Dinner Percent of Meal Consumed 25% General appearance: average body habitus, cooperative, no acute distress - Respiratory Respiratory exam: Absent: respiratory distress - Cardiovascular Cardiovascular exam: Present: normal rate and rhythm - GI/Abdominal GI/Abdominal exam: Present: soft, organomegaly - Extremities Exam Extremities exam: Absent: pedal edema Medical - PN: Obj Da - Labs CBC & Chem 7: 05/08/17 14:27 05/08/17 04:15 Labs: Abnormal Lab Results 05/08/17 05/08/17 05/08/17 14:27 12:50 12:30 WBC RBC Hgb 8.4 L Hct 25.7 L POC Hct MCV MCH MCHC RDW Plt Count Gran % Lymph % (Auto) Gran # POC PT PT 17.0 H POC INR INR 1.3 H VBG Lactic Acid POC Sodium Sodium Potassium POC Chloride Chloride Carbon Dioxide POC Total CO2 Anion Gap POC BUN BUN Creatinine POC Creatinine Glucose POC Glucose Hemoglobin A1c 6.1 H Calcium POC WB Ioniz Calcium Phosphorus Total Bilirubin Direct Bilirubin GGT AST ALT Lactate Dehydrogenase Total Protein Albumin Lipase Urine Glucose (UA) Urine Ketones Urine Urobilinogen Urine Bacteria ANGELO Screen 05/08/17 05/08/17 05/08/17 10:35 06:20 04:15 WBC RBC 3.39 L Hgb 8.5 L 8.5 L 8.6 L Hct 25.3 L 25.4 L 25.8 L POC Hct MCV 76.2 L MCH 25.3 L MCHC RDW 25.6 H Plt Count 106 L Gran % Lymph % (Auto) Gran # POC PT PT POC INR INR VBG Lactic Acid POC Sodium Sodium Potassium POC Chloride Chloride Carbon Dioxide POC Total CO2 Anion Gap POC BUN BUN Creatinine POC Creatinine Glucose POC Glucose Hemoglobin A1c Calcium POC WB Ioniz Calcium Phosphorus Total Bilirubin Direct Bilirubin GGT AST ALT Lactate Dehydrogenase Total Protein Albumin Lipase Urine Glucose (UA) Urine Ketones Urine Urobilinogen Urine Bacteria ANGELO Screen 05/08/17 05/08/17 05/07/17 04:15 02:24 22:08 WBC RBC Hgb 9.0 L Hct 27.1 L POC Hct MCV MCH MCHC RDW Plt Count Gran % Lymph % (Auto) Gran # POC PT PT POC INR INR VBG Lactic Acid POC Sodium Sodium 128 L Potassium 3.2 L POC Chloride Chloride 95 L Carbon Dioxide POC Total CO2 Anion Gap POC BUN BUN Creatinine 0.4 L POC Creatinine Glucose 136 H POC Glucose Hemoglobin A1c Calcium 7.1 L POC WB Ioniz Calcium Phosphorus 1.8 L Total Bilirubin 5.8 H Direct Bilirubin 2.4 H GGT 95 H AST 291 H ALT 253 H Lactate Dehydrogenase 277 H Total Protein 5.3 L Albumin 3.0 L Lipase Urine Glucose (UA) >=500 A Urine Ketones 20 A Urine Urobilinogen 4.0 A Urine Bacteria Few A ANGELO Screen 05/07/17 05/07/17 05/07/17 21:43 21:43 16:14 WBC RBC Hgb 9.1 L Hct 27.9 L POC Hct MCV MCH MCHC RDW Plt Count Gran % Lymph % (Auto) Gran # POC PT 16.1 H PT POC INR 1.4 H INR VBG Lactic Acid POC Sodium Sodium Potassium POC Chloride Chloride Carbon Dioxide POC Total CO2 Anion Gap POC BUN BUN Creatinine POC Creatinine Glucose POC Glucose Hemoglobin A1c Calcium POC WB Ioniz Calcium Phosphorus Total Bilirubin Direct Bilirubin GGT AST ALT Lactate Dehydrogenase Total Protein Albumin Lipase Urine Glucose (UA) Urine Ketones Urine Urobilinogen Urine Bacteria ANGELO Screen Pos 1:80 or greater A 05/07/17 05/07/17 05/07/17 15:10 15:10 15:10 WBC 13.5 H RBC 1.80 L Hgb 3.4 L* Hct 11.2 L* POC Hct < 15.0 L* MCV 62.1 L MCH 18.7 L MCHC 30.2 L RDW 26.3 H Plt Count Gran % 79.1 H Lymph % (Auto) 14.4 L Gran # 10.7 H POC PT PT POC INR INR VBG Lactic Acid 6.6 H* POC Sodium 125 L Sodium 122 L Potassium POC Chloride 92 L Chloride 87 L Carbon Dioxide 15 L POC Total CO2 18 L Anion Gap 20.0 H POC BUN 39 H BUN 37 H Creatinine POC Creatinine 0.5 L Glucose 333 H POC Glucose 306 H Hemoglobin A1c Calcium 7.7 L POC WB Ioniz Calcium 0.99 L Phosphorus Total Bilirubin 1.4 H Direct Bilirubin GGT AST 382 H ALT 311 H Lactate Dehydrogenase Total Protein Albumin Lipase 119 H Urine Glucose (UA) Urine Ketones Urine Urobilinogen Urine Bacteria ANGELO Screen Meds: Medications Dextrose (Dextrose 50%) 0 ml IV UD PRN PRN Reason: Hypoglycemia Dextrose (Dextrose 50%) 0 ml IV UD PRN PRN Reason: Hypoglycemia Diagnostic Test (Pha) (Accu-Chek) 1 each FS ACHS [facility] Last Admin: 05/08/17 20:58 Dose: 1 each Hydromorphone HCl (Dilaudid) 0.5 mg IV Q4-6HP PRN PRN Reason: Pain Last Admin: 05/08/17 18:59 Dose: 0.5 mg Pantoprazole Sodium 80 mg/ (Sodium Chloride) 100 mls @ 10 mls/hr IV Q10H [facility] PRN Reason: 8 MG/HR Last Admin: 05/08/17 13:49 Dose: 8 mg/hr, 10 mls/hr Norepinephrine Bitartrate 16 (mg/ Sodium Chloride) 250 mls @ 9.37 mls/hr IV Q24HP PRN; Protocol; 10 MCG/MIN PRN Reason: TITRATE TO KEEP MAP > 65 Sodium Chloride (Sodium Chloride 0.9%) 1,000 mls @ 100 mls/hr IV .Q10H [facility] Last Admin: 05/08/17 13:46 Dose: 100 mls/hr Octreotide Acetate 500 mcg/ (Sodium Chloride) 500 mls @ 50 mls/hr IV Q10H [facility]; 50 MCG/HR PRN Reason: Protocol Insulin Human Lispro (Humalog) 0 unit SQ ACHS [facility] PRN Reason: Protocol Last Admin: 05/08/17 20:58 Dose: 3 unit Lorazepam (Ativan) 1 mg IV Q2HP PRN PRN Reason: ANXIETY/SEDATION Magnesium Hydroxide (Milk Of Magnesia) 30 ml PO DAILYP PRN PRN Reason: Constipation Morphine Sulfate (Morphine) 4 mg IV Q2HP PRN PRN Reason: Pain Last Admin: 05/08/17 05:42 Dose: 4 mg Naloxone HCl (Narcan) 0.1 mg IV Q2MIN PRN PRN Reason: Opiate Reversal Ondansetron HCl (Zofran) 4 mg IV Q4-6HP PRN PRN Reason: Nausea And Vomiting Last Admin: 05/08/17 19:50 Dose: 4 mg Sodium Chloride (Saline Flush) 10 ml IV Q8 [facility] Last Admin: 05/08/17 20:59 Dose: Not Given Medical - PN: A/P - Time Spent With Patient Total time spent is greater than 50% in coordination of care (as documented) at patient's floor/unit and/or counseling patient: 15 - 24 minutes - Narrative A/P Narrative: Varices have been banded. Would continue the octreotide another 24-48 hrs. Then start nadolol 20 mg once daily titrating to pulse about 55-60. Suspect cirrhosis, also want to r/o portal vein thrombosis. will await pending serologies. ANGELO is 1:160. ? if smooth muscle Ab is elevated to suggest autoimmune hepatitis. Also will await hepatitis serology espec hep C. Will order a CT scan of abd with oral and IV contrast to examine liver and spleen; look for portal vein thrombosis, etc. Medical - PN: Qual - VTE Deep Vein Thrombosis/Pulmonary Embolism Present on Admission: No
[2017-05-09] MEDS: 0.9 % SODIUM CHLORIDE 1,000 ML IV SCH ×2 (01:57→11:37)
[2017-05-09] MEDS: HYDROmorphone 2 MG/ML SYRINGE IV PRN ×2 (04:27→18:30)
[2017-05-09] MEDS: OCTREOTIDE ACETATE 500 MCG in 0.9 % SODIUM CHLORIDE 495 ML IV SCH ×2 (04:54→11:39)
[2017-05-09] MEDS: 0.9 % SODIUM CHLORIDE 10 ML SYRINGE IV SCH ×3 (05:34→21:53)
[2017-05-09 06:03] LABS: Basophils # (Auto) 0 K/mcL (0.0-0.3); Basophils % (Auto) 0.2 % (0.0-2.0); Eosinophils # (Auto) 0.1 K/mcL (0.0-0.7); Granulocytes % (Auto) 68.2 % (38.0-78.0); Lymphocytes # (Auto) 1.3 K/mcL (1.5-4.8); Lymphocytes % (Auto) 20.3 % (15.5-49.0); Mean Cell Volume 76.8 fL (80.0-100.0); Mean Corpuscular HGB Conc 32.3 g/dL (31.0-36.0); Mean Corpuscular Hemoglobin 24.8 pg (26.0-34.0); Monocytes # (Auto) 0.6 K/mcL (0.1-0.9); Monocytes % (Auto) 9.3 % (1.0-12.0); Platelet Count 108 K/mcL (140-440); RBC 3.23 M/mcL (4.00-5.20)
[2017-05-09 06:46] LABS: ALT/SGPT 226 U/l (0-40); Albumin 2.7 gm/dL (3.2-5.2); Albumin/Globulin Ratio 1.1 (1.0-2.3); Alkaline Phosphatase 84 U/L (39-117); Bilirubin,Direct 0.8 mg/dL (0.0-0.3); Blood Urea Nitrogen 12 mg/dl (6-20); Gamma Glutamyl Transpeptidase 79 U/L (5-36); Magnesium 1.9 mg/dL (1.6-2.5)
[2017-05-09] MEDS: ONDANSETRON 4 MG/2 ML VIAL IV PRN (07:27)
[2017-05-09] MEDS: INSULIN LISPRO 1 UNIT/0.01 ML UNIT SQ SCH ×4 (07:28→21:28)
[2017-05-09] MEDS ORDERED: PROMETHAZINE 12.5 MG SUPP.RECT PR ONE (08:30)
[2017-05-09] MEDS ORDERED: POTASSIUM CHLORIDE 40 MEQ in DEXTROSE 5% IN WATER 500 ML IV ONE (08:33)
[2017-05-09] MEDS ORDERED: IOPAMIDOL 100 ML BOTTLE IV ONE (10:06)
--- NOTE | 2017-05-09 11:23 | Cat Scan Report ---
CLINICAL INFORMATION: Hematemesis COMPARISON: None. TECHNIQUE: Following enteric contrast, 80 cc of Isovue-300 were injected intravenously, and 60 seconds later, 2.5 mm helical slices were obtained from the mid heart through the subtrochanteric regions. Following reconstruction, 2.5 mm sagittal, coronal and axial reformatted images were processed and reviewed at bone, lung and soft tissue windows. Five minutes later, 5 mm helical slices were obtained from the mid heart through the kidneys and viewed at soft tissue windows. FINDINGS: Tiny bilateral pleural effusions and minor bibasilar atelectasis appreciated. Small hiatal hernia is noted. The visualized heart is normal. Images through the abdomen show severe cirrhotic changes featuring a diminutive liver with a irregular corrugated hepatic cortical surface and inhomogeneous attenuation. There is a 9.5 hyperenhancing focus in the peripheral right hepatic lobe on the portal venous phase images which becomes isointense on five minute delayed images. No other potential hepatic lesions. . Moderate ascites seen is seen throughout the abdomen. The spleen is enlarged - 15 cm in vertical dimension. Portal vein is mildly enlarged there are varices in the perisplenic and perigastric regions. There are multiple stones within the gallbladder. Gallbladder wall is normal thickness. The common bile is slightly - 7 mm. No evidence of choledocholithiasis. Both kidneys, adrenal glands, pancreas and aorta are unremarkable. The stomach, small and large bowel show symmetric dilatation compatible with ileus. There is mild thickening of the wall and plica circulares folds within the small bowel in the midabdomen left upper quadrant - likely related to cirrhosis. No free air. Images through the pelvis show Leo catheter in satisfactory position within urinary bladder. The bladder is normal. Postmenopausal uterus is unremarkable. Bone windows show no osseous abnormality IMPRESSION: 1. Severe cirrhotic changes with portal hypertension featuring dilatation the portal veins and varices in the perigastric perisplenic and peripancreatic regions. The spleen is moderately enlarged and there is moderate simple appearing ascites throughout the abdomen and pelvis. 2. 9.5 mm hyperenhancing lesion in the right hepatic lobe seen on portal venous phase and isointense on delayed images. This may represent a benign transient attenuation difference but a small hepatoma is also possible. Patient is at risk for hepatoma development. Suggest abdominal MRI 3. Cholelithiasis. Gallbladder is otherwise normal. There is mild dilatation of the common bile duct - 7 mm. No evidence of choledocholithiasis however. Interpreted and Authenticated by: Drew Kincaid 05/09/17
[2017-05-09] MEDS: PANTOPRAZOLE 80 MG in 0.9 % SODIUM CHLORIDE 100 ML IV SCH (11:39)
[2017-05-09] MEDS ORDERED: NALOXONE HCL 0.4 MG/ML VIAL IV PRN (11:44)
[2017-05-09] MEDS ORDERED: ONDANSETRON 4 MG/2 ML VIAL IV PRN (11:44)
[2017-05-09] MEDS ORDERED: LORazepam 2 MG/ML VIAL IV PRN (11:44)
[2017-05-09] MEDS ORDERED: DEXTROSE 50% 50 ML VIAL IV PRN ×2 (11:44)
[2017-05-09] MEDS ORDERED: MAGNESIUM HYDROXIDE 30 ML ORAL.SUSP PO PRN (11:44)
[2017-05-09] MEDS ORDERED: 0.9 % SODIUM CHLORIDE 1,000 ML IV SCH (11:44)
--- NOTE | 2017-05-09 16:49 | Internal Med Progress Note ---
Medical - PN: Subj Patient information: Note initiated : 05/09/17 at 4:45 pm Service Date, if different from initiated Date: [] Patient: Rona Rees a 47 y/o F admitted on 05/07/17 for Blood In Stool, Coughed Up Blood. 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 her stool has turned brown per nursing. I discussed the CT scan done today that shows obviously shrunken cirrhotic liver. There is a small 9.5 mm lesion in liver too small to characterize but radiologist recommends an MRI abd to r/o hepatoma. AFP was normal. CT also shows moderate ascites;splenomegaly. I will discontinue her saline infusion of 125 cc/hr. Interval history: May 07, 2013: History of present illness: Ms. Rees is a 47 year old female with no known significant past medical problems. She reports that she has had some intermittent stomach discomfort since about November of this year. She is not sure if she might of had black stools in the past, but does not recall black or bloody stools. 4 days ago, she started to have severe vomiting. She says she vomited violently about 9 times. Each time she brought up bright red blood. She says that she felt very weak afterwards, but was home alone, and did not want to bother her father, who was on a hunting trip. She felt too weak to drive herself to the emergency room, so she waited until he got home today, and had him bring her in. ER evaluation showed tachycardia, tachypnea, hemoglobin of 3, MCV of 62, elevated lactic acid , marked hyperglycemia. The patient was resuscitated with fluids and O- blood in the ER, and then transferred to the intensive care unit. The patient denies the use of NSAIDs or aspirin. She drinks alcohol extremely rarely. She previously smoked from age 22 until age 45, and then quit 2 years ago. She does currently smoke E cigarettes. She does not use drugs. She otherwise notes she is cold all the time. She has had some mild shortness of breath on and off for several months. She notes only occasional upper abdominal discomfort, but no nausea and no vomiting until last weekend. She says she did have some sinus symptoms about 2 weeks ago, and went to see someone who prescribed doxycycline for possible sinus infection. He has been quite fatigued, and says she can hear the blood rushing in her ears at times. She has been feeling a little dizzy. She denies headaches, new eye or ear symptoms, sore throat or cough. He denies chest pain or palpitations. She denies dysuris May 08: The patient received a total of 4 units of blood overnight. Hemoglobin is getting closer to normal this morning. Today, she says she is feeling a bit better. She is having a fair amount of epigastric and substernal chest discomfort since the esophageal banding. Dilaudid helps with the pain, but makes her feel very groggy. She did try to eat some Jell-O this morning, but then vomited up a small amount. Did have a melanotic stool this morning. Otherwise, she denies fever chills, headaches or dizziness, palpitations or shortness of breath, diarrhea or constipation, dysuria. Next She is quizzed more closely about her medical history today. She was seeing a Dr. Quiles about 10 years ago. She says she did develop some kind of liver problem after taking a diet medicine called metabolite. She says he treated her with a liquid diet for a while and it seemed to go away. She said there were a couple of years about 20 years ago where she used to drink heavily on the weekends, but none since then. She denies ever using any sort of drugs or being sexually active with a known drug user. Her nurse notes that her urine output has dropped off quite a bit over the last couple of hours. Patient is receiving about 160 mL an hour of fluids and medications. Potassium was also low this morning. - Constitutional Vitals: Vital Signs Temp Pulse Resp BP Pulse Ox 98.3 F 82 18 113/75 97 05/09/17 12:00 05/09/17 12:00 05/09/17 12:00 05/09/17 12:00 05/09/17 12:00 Period Temp Pulse Resp BP Sys/Ybarra Pulse Ox Last 24 Hr 98.0 F-98.8 F 72-111 8-20 97-152/71-97 97-100 Intake and Output 05/09/17 05/09/17 05/09/17 05:59 13:59 21:59 Intake Total 1600 / 1600 1397 / 1397 300 / 300 Output Total 260 / 260 490 / 490 250 / 250 Balance 1340 / 1340 907 / 907 50 / 50 Intake & Output: Intake & Output 05/09/17 05/09/17 05/09/17 05:59 13:59 21:59 Intake Total 1600 / 1600 1397 / 1397 300 / 300 Output Total 260 / 260 490 / 490 250 / 250 Balance 1340 / 1340 907 / 907 50 / 50 Intake: IV 1600 / 1600 1397 / 1397 Sodium Chloride 0.9% 1,000 ml @ 1000 / 1000 963 / 963 100 mls/hr IV .Q10H [facility] Rx#: [id number] Sandostatin 500 Mcg In Sodium 334 / 334 Chloride 0.9% 495 ml @ 50 MCG/ HR 50 mls/hr IV Q10H [facility] Rx#: [id number] Protonix 80 mg In Sodium 100 / 100 100 / 100 Chloride 0.9% 100 ml @ 8 MG/HR 10 mls/hr IV Q10H [facility] Rx#: [id number] Oral 300 / 300 Output: Urine Catheter Amount 260 / 260 90 / 90 250 / 250 Stool 400 / 400 General appearance: average body habitus, cooperative, no acute distress - Eye Eye exam: Absent: scleral icterus - Respiratory Respiratory exam: Absent: respiratory distress - Cardiovascular Cardiovascular exam: Present: normal rate and rhythm - GI/Abdominal Additional comments: mildly distended abd but not tight; spleen palpable on deep inspiration - Psychiatric Psychiatric exam: Present: normal affect Medical - PN: Obj Da - Labs CBC & Chem 7: 05/09/17 14:35 05/09/17 04:14 Labs: Abnormal Lab Results 05/09/17 05/09/17 05/09/17 14:35 04:14 04:14 WBC RBC 3.23 L Hgb 7.8 L 8.0 L Hct 24.4 L 24.8 L POC Hct MCV 76.8 L MCH 24.8 L MCHC RDW 25.0 H Plt Count 108 L Gran % Lymph % (Auto) Gran # Lymph # (Auto) 1.3 L POC PT PT 15.8 H POC INR INR 1.2 H VBG Lactic Acid POC Sodium Sodium Potassium POC Chloride Chloride Carbon Dioxide POC Total CO2 Anion Gap POC BUN BUN Creatinine POC Creatinine Glucose POC Glucose Hemoglobin A1c Calcium POC WB Ioniz Calcium Phosphorus Total Bilirubin Direct Bilirubin GGT AST ALT Lactate Dehydrogenase Total Protein Albumin Lipase Urine Glucose (UA) Urine Ketones Urine Urobilinogen Urine Bacteria ANGELO Screen 05/09/17 05/08/17 05/08/17 04:14 14:27 12:50 WBC RBC Hgb 8.4 L Hct 25.7 L POC Hct MCV MCH MCHC RDW Plt Count Gran % Lymph % (Auto) Gran # Lymph # (Auto) POC PT PT 17.0 H POC INR INR 1.3 H VBG Lactic Acid POC Sodium Sodium Potassium POC Chloride Chloride Carbon Dioxide POC Total CO2 Anion Gap POC BUN BUN Creatinine 0.3 L POC Creatinine Glucose 112 H POC Glucose Hemoglobin A1c Calcium 7.1 L POC WB Ioniz Calcium Phosphorus 1.8 L Total Bilirubin 1.6 H Direct Bilirubin 0.8 H GGT 79 H AST 260 H ALT 226 H Lactate Dehydrogenase Total Protein 5.2 L Albumin 2.7 L Lipase Urine Glucose (UA) Urine Ketones Urine Urobilinogen Urine Bacteria ANGELO Screen 05/08/17 05/08/17 05/08/17 12:30 10:35 06:20 WBC RBC Hgb 8.5 L 8.5 L Hct 25.3 L 25.4 L POC Hct MCV MCH MCHC RDW Plt Count Gran % Lymph % (Auto) Gran # Lymph # (Auto) POC PT PT POC INR INR VBG Lactic Acid POC Sodium Sodium Potassium POC Chloride Chloride Carbon Dioxide POC Total CO2 Anion Gap POC BUN BUN Creatinine POC Creatinine Glucose POC Glucose Hemoglobin A1c 6.1 H Calcium POC WB Ioniz Calcium Phosphorus Total Bilirubin Direct Bilirubin GGT AST ALT Lactate Dehydrogenase Total Protein Albumin Lipase Urine Glucose (UA) Urine Ketones Urine Urobilinogen Urine Bacteria ANGELO Screen 05/08/17 05/08/17 05/08/17 04:15 04:15 02:24 WBC RBC 3.39 L Hgb 8.6 L 9.0 L Hct 25.8 L 27.1 L POC Hct MCV 76.2 L MCH 25.3 L MCHC RDW 25.6 H Plt Count 106 L Gran % Lymph % (Auto) Gran # Lymph # (Auto) POC PT PT POC INR INR VBG Lactic Acid POC Sodium Sodium 128 L Potassium 3.2 L POC Chloride Chloride 95 L Carbon Dioxide POC Total CO2 Anion Gap POC BUN BUN Creatinine 0.4 L POC Creatinine Glucose 136 H POC Glucose Hemoglobin A1c Calcium 7.1 L POC WB Ioniz Calcium Phosphorus 1.8 L Total Bilirubin 5.8 H Direct Bilirubin 2.4 H GGT 95 H AST 291 H ALT 253 H Lactate Dehydrogenase 277 H Total Protein 5.3 L Albumin 3.0 L Lipase Urine Glucose (UA) Urine Ketones Urine Urobilinogen Urine Bacteria ANGELO Screen 05/07/17 05/07/17 05/07/17 22:08 21:43 21:43 WBC RBC Hgb 9.1 L Hct 27.9 L POC Hct MCV MCH MCHC RDW Plt Count Gran % Lymph % (Auto) Gran # Lymph # (Auto) POC PT PT POC INR INR VBG Lactic Acid POC Sodium Sodium Potassium POC Chloride Chloride Carbon Dioxide POC Total CO2 Anion Gap POC BUN BUN Creatinine POC Creatinine Glucose POC Glucose Hemoglobin A1c Calcium POC WB Ioniz Calcium Phosphorus Total Bilirubin Direct Bilirubin GGT AST ALT Lactate Dehydrogenase Total Protein Albumin Lipase Urine Glucose (UA) >=500 A Urine Ketones 20 A Urine Urobilinogen 4.0 A Urine Bacteria Few A ANGELO Screen Pos 1:80 or greater A 05/07/17 05/07/17 05/07/17 16:14 15:10 15:10 WBC RBC Hgb Hct POC Hct < 15.0 L* MCV MCH MCHC RDW Plt Count Gran % Lymph % (Auto) Gran # Lymph # (Auto) POC PT 16.1 H PT POC INR 1.4 H INR VBG Lactic Acid 6.6 H* POC Sodium 125 L Sodium 122 L Potassium POC Chloride 92 L Chloride 87 L Carbon Dioxide 15 L POC Total CO2 18 L Anion Gap 20.0 H POC BUN 39 H BUN 37 H Creatinine POC Creatinine 0.5 L Glucose 333 H POC Glucose 306 H Hemoglobin A1c Calcium 7.7 L POC WB Ioniz Calcium 0.99 L Phosphorus Total Bilirubin 1.4 H Direct Bilirubin GGT AST 382 H ALT 311 H Lactate Dehydrogenase Total Protein Albumin Lipase 119 H Urine Glucose (UA) Urine Ketones Urine Urobilinogen Urine Bacteria NAGELO Screen 05/07/17 15:10 WBC 13.5 H RBC 1.80 L Hgb 3.4 L* Hct 11.2 L* POC Hct MCV 62.1 L MCH 18.7 L MCHC 30.2 L RDW 26.3 H Plt Count Gran % 79.1 H Lymph % (Auto) 14.4 L Gran # 10.7 H Lymph # (Auto) POC PT PT POC INR INR VBG Lactic Acid POC Sodium Sodium Potassium POC Chloride Chloride Carbon Dioxide POC Total CO2 Anion Gap POC BUN BUN Creatinine POC Creatinine Glucose POC Glucose Hemoglobin A1c Calcium POC WB Ioniz Calcium Phosphorus Total Bilirubin Direct Bilirubin GGT AST ALT Lactate Dehydrogenase Total Protein Albumin Lipase Urine Glucose (UA) Urine Ketones Urine Urobilinogen Urine Bacteria ANGELO Screen Meds: Medications Dextrose (Dextrose 50%) 0 ml IV UD PRN PRN Reason: Hypoglycemia Diagnostic Test (Pha) (Accu-Chek) 1 each FS ACHS [facility] Hydromorphone HCl (Dilaudid) 0.5 mg IV Q4-6HP PRN PRN Reason: Pain Sodium Chloride (Sodium Chloride 0.9%) 1,000 mls @ 100 mls/hr IV .Q10H [facility] Last Admin: 05/09/17 12:56 Dose: Not Given Octreotide Acetate 500 mcg/ (Sodium Chloride) 500 mls @ 50 mls/hr IV Q10H [facility] PRN Reason: Protocol Pantoprazole Sodium 80 mg/ (Sodium Chloride) 100 mls @ 10 mls/hr IV Q10H [facility] PRN Reason: 8 MG/HR Insulin Human Lispro (Humalog) 0 unit SQ ACHS [facility] PRN Reason: Protocol Lorazepam (Ativan) 1 mg IV Q2HP PRN PRN Reason: ANXIETY/SEDATION Magnesium Hydroxide (Milk Of Magnesia) 30 ml PO DAILYP PRN PRN Reason: Constipation Morphine Sulfate (Morphine) 4 mg IV Q2HP PRN PRN Reason: Pain Naloxone HCl (Narcan) 0.1 mg IV Q2MIN PRN PRN Reason: Opiate Reversal Ondansetron HCl (Zofran) 4 mg IV Q4-6HP PRN PRN Reason: Nausea And Vomiting Sodium Chloride (Saline Flush) 10 ml IV Q8 [facility] Last Admin: 05/09/17 12:56 Dose: Not Given Medical - PN: A/P - Time Spent With Patient Total time spent is greater than 50% in coordination of care (as documented) at patient's floor/unit and/or counseling patient: (1) Upper gastrointestinal hemorrhage Status: Acute Assessment and plan: continue octreotide drip until tomorrow afternoon. will d/c the PPI infusion now. will advise another EGD in about one month to further band esoph varices. Advise starting nadolol 20 mg daily once the octreotide is off and titrating dose to pulse about 55. Current Visit: No (2) Esophageal varices determined by endoscopy Status: Acute Assessment and plan: varices shown to be in conjunction with cirrhosis as expected. Serologies still pending trying to identify cause of cirrhosis. Since she is developing ascites iatrogenically I will d/c the saline 125 ml/hr and the protonix infusion as well. Also will have nursing remove the Leo which carries increased infection risk in cirrhotics with ascites. MRI abd ordered as suggested by radiology, although the lesion seen on CT may still be too small to characterize. Current Visit: No Medical - PN: Qual - VTE Deep Vein Thrombosis/Pulmonary Embolism Present on Admission: No
--- NOTE | 2017-05-09 19:37 | Internal Med Progress Note ---
Medical - PN: Subj Patient information: Note initiated : 05/09/17 at 7:35 pm Service Date, if different from initiated Date: [] Patient: Rona Rees a 47 y/o F admitted on 05/07/17 for Blood In Stool, Coughed Up Blood. Chief Complaint: f/u cirrhosis, GI bleed Interval history: May 07, 2013: History of present illness: Ms. Rees is a 47 year old female with no known significant past medical problems. She reports that she has had some intermittent stomach discomfort since about November of this year. She is not sure if she might of had black stools in the past, but does not recall black or bloody stools. 4 days ago, she started to have severe vomiting. She says she vomited violently about 9 times. Each time she brought up bright red blood. She says that she felt very weak afterwards, but was home alone, and did not want to bother her father, who was on a hunting trip. She felt too weak to drive herself to the emergency room, so she waited until he got home today, and had him bring her in. ER evaluation showed tachycardia, tachypnea, hemoglobin of 3, MCV of 62, elevated lactic acid , marked hyperglycemia. The patient was resuscitated with fluids and O- blood in the ER, and then transferred to the intensive care unit. The patient denies the use of NSAIDs or aspirin. She drinks alcohol extremely rarely. She previously smoked from age 22 until age 45, and then quit 2 years ago. She does currently smoke E cigarettes. She does not use drugs. She otherwise notes she is cold all the time. She has had some mild shortness of breath on and off for several months. She notes only occasional upper abdominal discomfort, but no nausea and no vomiting until last weekend. She says she did have some sinus symptoms about 2 weeks ago, and went to see someone who prescribed doxycycline for possible sinus infection. He has been quite fatigued, and says she can hear the blood rushing in her ears at times. She has been feeling a little dizzy. She denies headaches, new eye or ear symptoms, sore throat or cough. He denies chest pain or palpitations. She denies dysuris May 08: The patient received a total of 4 units of blood overnight. Hemoglobin is getting closer to normal this morning. Today, she says she is feeling a bit better. She is having a fair amount of epigastric and substernal chest discomfort since the esophageal banding. Dilaudid helps with the pain, but makes her feel very groggy. She did try to eat some Jell-O this morning, but then vomited up a small amount. Did have a melanotic stool this morning. Otherwise, she denies fever chills, headaches or dizziness, palpitations or shortness of breath, diarrhea or constipation, dysuria. Next She is quizzed more closely about her medical history today. She was seeing a Dr. Quiles about 10 years ago. She says she did develop some kind of liver problem after taking a diet medicine called metabolite. She says he treated her with a liquid diet for a while and it seemed to go away. She said there were a couple of years about 20 years ago where she used to drink heavily on the weekends, but none since then. She denies ever using any sort of drugs or being sexually active with a known drug user. Her nurse notes that her urine output has dropped off quite a bit over the last couple of hours. Patient is receiving about 160 mL an hour of fluids and medications. Potassium was also low this morning. May 09: Head CT scan done this morning, results as noted in GIs note, shrunken liver, splenomegaly, evidence of varices. No evidence of portal vein thrombosis. Also small lesion in the liver, which will be characterized by MRI. Patient is without specific complaints. Old records from [facility] obtained. In March 2009 she had some lateral left abdominal pain, had CT of the abdomen at that time which showed normal liver and spleen. AST was mildly elevated at 76, ALT at 89. - Constitutional Vitals: Vital Signs Temp Pulse Resp BP Pulse Ox 98.1 F 82 15 122/81 97 05/09/17 16:00 05/09/17 12:00 05/09/17 16:00 05/09/17 16:00 05/09/17 16:00 Period Temp Pulse Resp BP Sys/Ybarra Pulse Ox Last 24 Hr 98.0 F-98.8 F 81-111 8-20 97-152/71-94 97-100 Intake and Output 05/09/17 05/09/17 05/09/17 05:59 13:59 21:59 Intake Total 1600 / 1600 1397 / 1397 910 / 910 Output Total 260 / 260 490 / 490 1150 / 1150 Balance 1340 / 1340 907 / 907 -240 / -240 Intake & Output: Intake & Output 05/09/17 05/09/17 05/09/17 05:59 13:59 21:59 Intake Total 1600 / 1600 1397 / 1397 910 / 910 Output Total 260 / 260 490 / 490 1150 / 1150 Balance 1340 / 1340 907 / 907 -240 / -240 Intake: IV 1600 / 1600 1397 / 1397 610 / 610 Sodium Chloride 0.9% 1,000 ml @ 1000 / 1000 963 / 963 100 mls/hr IV .Q10H [facility] Rx#: [id number] Sandostatin 500 Mcg In Sodium 334 / 334 Chloride 0.9% 495 ml @ 50 MCG/ HR 50 mls/hr IV Q10H [facility] Rx#: [id number] Protonix 80 mg In Sodium 100 / 100 100 / 100 Chloride 0.9% 100 ml @ 8 MG/HR 10 mls/hr IV Q10H [facility] Rx#: [id number] Oral 300 / 300 Output: Urine Catheter Amount 260 / 260 90 / 90 1000 / 1000 Urine/Stool Mix 150 / 150 Stool 400 / 400 - Additional findings Additional findings: General: Laying in bed in no acute distress Chest: Clear, no rales, nonlabored Cardiovascular: Regular rate and rhythm Abdomen: Mildly distended, soft, active bowel sounds Neuro: Alert, oriented 3, mentation intact, moves all extremities. Medical - PN: Obj Da - Labs CBC & Chem 7: 05/09/17 14:35 05/09/17 04:14 Labs: Abnormal Lab Results 05/09/17 05/09/17 05/09/17 14:35 04:14 04:14 WBC RBC 3.23 L Hgb 7.8 L 8.0 L Hct 24.4 L 24.8 L POC Hct MCV 76.8 L MCH 24.8 L MCHC RDW 25.0 H Plt Count 108 L Gran % Lymph % (Auto) Gran # Lymph # (Auto) 1.3 L POC PT PT 15.8 H POC INR INR 1.2 H VBG Lactic Acid POC Sodium Sodium Potassium POC Chloride Chloride Carbon Dioxide POC Total CO2 Anion Gap POC BUN BUN Creatinine POC Creatinine Glucose POC Glucose Hemoglobin A1c Calcium POC WB Ioniz Calcium Phosphorus Total Bilirubin Direct Bilirubin GGT AST ALT Lactate Dehydrogenase Total Protein Albumin Lipase Urine Glucose (UA) Urine Ketones Urine Urobilinogen Urine Bacteria ANGELO Screen 05/09/17 05/08/17 05/08/17 04:14 14:27 12:50 WBC RBC Hgb 8.4 L Hct 25.7 L POC Hct MCV MCH MCHC RDW Plt Count Gran % Lymph % (Auto) Gran # Lymph # (Auto) POC PT PT 17.0 H POC INR INR 1.3 H VBG Lactic Acid POC Sodium Sodium Potassium POC Chloride Chloride Carbon Dioxide POC Total CO2 Anion Gap POC BUN BUN Creatinine 0.3 L POC Creatinine Glucose 112 H POC Glucose Hemoglobin A1c Calcium 7.1 L POC WB Ioniz Calcium Phosphorus 1.8 L Total Bilirubin 1.6 H Direct Bilirubin 0.8 H GGT 79 H AST 260 H ALT 226 H Lactate Dehydrogenase Total Protein 5.2 L Albumin 2.7 L Lipase Urine Glucose (UA) Urine Ketones Urine Urobilinogen Urine Bacteria ANGELO Screen 05/08/17 05/08/17 05/08/17 12:30 10:35 06:20 WBC RBC Hgb 8.5 L 8.5 L Hct 25.3 L 25.4 L POC Hct MCV MCH MCHC RDW Plt Count Gran % Lymph % (Auto) Gran # Lymph # (Auto) POC PT PT POC INR INR VBG Lactic Acid POC Sodium Sodium Potassium POC Chloride Chloride Carbon Dioxide POC Total CO2 Anion Gap POC BUN BUN Creatinine POC Creatinine Glucose POC Glucose Hemoglobin A1c 6.1 H Calcium POC WB Ioniz Calcium Phosphorus Total Bilirubin Direct Bilirubin GGT AST ALT Lactate Dehydrogenase Total Protein Albumin Lipase Urine Glucose (UA) Urine Ketones Urine Urobilinogen Urine Bacteria ANGELO Screen 05/08/17 05/08/17 05/08/17 04:15 04:15 02:24 WBC RBC 3.39 L Hgb 8.6 L 9.0 L Hct 25.8 L 27.1 L POC Hct MCV 76.2 L MCH 25.3 L MCHC RDW 25.6 H Plt Count 106 L Gran % Lymph % (Auto) Gran # Lymph # (Auto) POC PT PT POC INR INR VBG Lactic Acid POC Sodium Sodium 128 L Potassium 3.2 L POC Chloride Chloride 95 L Carbon Dioxide POC Total CO2 Anion Gap POC BUN BUN Creatinine 0.4 L POC Creatinine Glucose 136 H POC Glucose Hemoglobin A1c Calcium 7.1 L POC WB Ioniz Calcium Phosphorus 1.8 L Total Bilirubin 5.8 H Direct Bilirubin 2.4 H GGT 95 H AST 291 H ALT 253 H Lactate Dehydrogenase 277 H Total Protein 5.3 L Albumin 3.0 L Lipase Urine Glucose (UA) Urine Ketones Urine Urobilinogen Urine Bacteria ANGELO Screen 05/07/17 05/07/17 05/07/17 22:08 21:43 21:43 WBC RBC Hgb 9.1 L Hct 27.9 L POC Hct MCV MCH MCHC RDW Plt Count Gran % Lymph % (Auto) Gran # Lymph # (Auto) POC PT PT POC INR INR VBG Lactic Acid POC Sodium Sodium Potassium POC Chloride Chloride Carbon Dioxide POC Total CO2 Anion Gap POC BUN BUN Creatinine POC Creatinine Glucose POC Glucose Hemoglobin A1c Calcium POC WB Ioniz Calcium Phosphorus Total Bilirubin Direct Bilirubin GGT AST ALT Lactate Dehydrogenase Total Protein Albumin Lipase Urine Glucose (UA) >=500 A Urine Ketones 20 A Urine Urobilinogen 4.0 A Urine Bacteria Few A ANGELO Screen Pos 1:80 or greater A 05/07/17 05/07/17 05/07/17 16:14 15:10 15:10 WBC RBC Hgb Hct POC Hct < 15.0 L* MCV MCH MCHC RDW Plt Count Gran % Lymph % (Auto) Gran # Lymph # (Auto) POC PT 16.1 H PT POC INR 1.4 H INR VBG Lactic Acid 6.6 H* POC Sodium 125 L Sodium 122 L Potassium POC Chloride 92 L Chloride 87 L Carbon Dioxide 15 L POC Total CO2 18 L Anion Gap 20.0 H POC BUN 39 H BUN 37 H Creatinine POC Creatinine 0.5 L Glucose 333 H POC Glucose 306 H Hemoglobin A1c Calcium 7.7 L POC WB Ioniz Calcium 0.99 L Phosphorus Total Bilirubin 1.4 H Direct Bilirubin GGT AST 382 H ALT 311 H Lactate Dehydrogenase Total Protein Albumin Lipase 119 H Urine Glucose (UA) Urine Ketones Urine Urobilinogen Urine Bacteria ANGELO Screen 05/07/17 15:10 WBC 13.5 H RBC 1.80 L Hgb 3.4 L* Hct 11.2 L* POC Hct MCV 62.1 L MCH 18.7 L MCHC 30.2 L RDW 26.3 H Plt Count Gran % 79.1 H Lymph % (Auto) 14.4 L Gran # 10.7 H Lymph # (Auto) POC PT PT POC INR INR VBG Lactic Acid POC Sodium Sodium Potassium POC Chloride Chloride Carbon Dioxide POC Total CO2 Anion Gap POC BUN BUN Creatinine POC Creatinine Glucose POC Glucose Hemoglobin A1c Calcium POC WB Ioniz Calcium Phosphorus Total Bilirubin Direct Bilirubin GGT AST ALT Lactate Dehydrogenase Total Protein Albumin Lipase Urine Glucose (UA) Urine Ketones Urine Urobilinogen Urine Bacteria ANGELO Screen Meds: Medications Dextrose (Dextrose 50%) 0 ml IV UD PRN PRN Reason: Hypoglycemia Diagnostic Test (Pha) (Accu-Chek) 1 each FS ACHS [facility] Last Admin: 05/09/17 17:29 Dose: 1 each Hydromorphone HCl (Dilaudid) 0.5 mg IV Q4-6HP PRN PRN Reason: Pain Octreotide Acetate 500 mcg/ (Sodium Chloride) 500 mls @ 50 mls/hr IV Q10H [facility] PRN Reason: Protocol Sodium Chloride (Sodium Chloride 0.9%) 250 mls @ 20 mls/hr IV .[id number] [facility] Stop: 05/10/17 08:14 Insulin Human Lispro (Humalog) 0 unit SQ [facility] PRN Reason: Protocol Last Admin: 05/09/17 17:29 Dose: Not Given Lorazepam (Ativan) 1 mg IV Q2HP PRN PRN Reason: ANXIETY/SEDATION Magnesium Hydroxide (Milk Of Magnesia) 30 ml PO DAILYP PRN PRN Reason: Constipation Morphine Sulfate (Morphine) 4 mg IV Q2HP PRN PRN Reason: Pain Naloxone HCl (Narcan) 0.1 mg IV Q2MIN PRN PRN Reason: Opiate Reversal Ondansetron HCl (Zofran) 4 mg IV Q4-6HP PRN PRN Reason: Nausea And Vomiting Sodium Chloride (Saline Flush) 10 ml IV Q8 [facility] Last Admin: 05/09/17 12:56 Dose: Not Given Medical - PN: A/P - Time Spent With Patient Total time spent is greater than 50% in coordination of care (as documented) at patient's floor/unit and/or counseling patient: - Narrative A/P Narrative: 1. GI. Patient presents with acute upper GI hemorrhage due to previously undiagnosed esophageal varices. S/P banding 2 days go. Transfused 4 units PRBC, Hb now trending down to mid-7's from mid-8's gm/dL. -Continue octreotide until tomorrow, then begin nadolol, titrate to HR 55. -Transfuse 1 further unit of PRBC Thursday given risk for rebleeding. -Autoimmune/hepatitis workup is in progress. -Stop PPI drip. #2. Endocrine. Patient presents with severe hyperglycemia, new onset diabetes. -Initial hyperglycemia controlled after insulin, glucoses now running in the 100s. -Hemoglobin A1c 6.2, suggesting chronic mild hyperglycemia, likely can be managed with diet as an outpatient -Accu-Cheks and sliding scale insulin. -Diabetes education. 3. Hyponatremia. Probably pseudohyponatremia, due to hyperglycemia. Improving. 4. Hypovolemic shock, resolved Patient presented with severe blood loss anemia, tachycardia, lactic acidosis. -s/p aggressive fluid resuscitation and transfusion. She is responding well at this time. 5. CODE STATUS: Full code. She says her father will act as her POA. 6. DVT prophylaxis: SCDs. Discussed with Dr. Liao Medical - PN: Qual - VTE Deep Vein Thrombosis/Pulmonary Embolism Present on Admission: No
[2017-05-09] MEDS ORDERED: 0.9 % SODIUM CHLORIDE 250 ML IV SCH (19:45)
[2017-05-09] MEDS ORDERED: diphenhydrAMINE 25 MG CAPSULE PO PRN (19:59)
[2017-05-09] MEDS ORDERED: diphenhydrAMINE 50 MG/ML VIAL IV ONE (19:59)
[2017-05-09] MEDS ORDERED: PANTOPRAZOLE 80 MG in 0.9 % SODIUM CHLORIDE 100 ML IV SCH (20:00)
[2017-05-09] MEDS: OCTREOTIDE ACETATE 500 MCG in 0.9 % SODIUM CHLORIDE 499.5 ML IV SCH (21:53)
[2017-05-09] MEDS ORDERED: diphenhydrAMINE 50 MG/ML VIAL ONE (21:59)
[2017-05-10] MEDS: OCTREOTIDE ACETATE 500 MCG in 0.9 % SODIUM CHLORIDE 499.5 ML IV SCH ×2 (04:08→08:52)
[2017-05-10] MEDS: 0.9 % SODIUM CHLORIDE 10 ML SYRINGE IV SCH ×3 (05:11→22:51)
[2017-05-10 06:02] LABS: Basophils # (Auto) 0 K/mcL (0.0-0.3); Basophils % (Auto) 0.6 % (0.0-2.0); Eosinophils # (Auto) 0.1 K/mcL (0.0-0.7); Eosinophils % (Auto) 2.4 % (0.0-7.0); Granulocytes % (Auto) 65.4 % (38.0-78.0); Lymphocytes # (Auto) 1.4 K/mcL (1.5-4.8); Lymphocytes % (Auto) 23.8 % (15.5-49.0); Mean Cell Volume 78.6 fL (80.0-100.0); Mean Corpuscular HGB Conc 33.4 g/dL (31.0-36.0); Mean Corpuscular Hemoglobin 26.3 pg (26.0-34.0); Monocytes # (Auto) 0.4 K/mcL (0.1-0.9); Monocytes % (Auto) 7.8 % (1.0-12.0); Platelet Count 109 K/mcL (140-440); RBC 3.65 M/mcL (4.00-5.20); Red Cell Distribution Width 24.7 % (11.5-14.5)
[2017-05-10 06:12] LABS: ALT/SGPT 186 U/l (0-40); Albumin 2.8 gm/dL (3.2-5.2); Albumin/Globulin Ratio 1.1 (1.0-2.3); Alkaline Phosphatase 84 U/L (39-117); Bilirubin,Direct 0.8 mg/dL (0.0-0.3); Blood Urea Nitrogen 7 mg/dl (6-20); Gamma Glutamyl Transpeptidase 77 U/L (5-36); Magnesium 1.9 mg/dL (1.6-2.5)
[2017-05-10] MEDS ORDERED: FUROSEMIDE 20 MG/2 ML VIAL IV ONE (08:13)
--- NOTE | 2017-05-10 08:16 | Internal Med Progress Note ---
Medical - PN: Subj Patient information: Note initiated : 05/10/17 at 8:14 am Service Date, if different from initiated Date: [] Patient: Rona Rees a 47 y/o F admitted on 05/07/17 for Blood In Stool, Coughed Up Blood. Chief Complaint: f/u cirrhosis Interval history: May 07, 2013: History of present illness: Ms. Rees is a 47 year old female with no known significant past medical problems. She reports that she has had some intermittent stomach discomfort since about November of this year. She is not sure if she might of had black stools in the past, but does not recall black or bloody stools. 4 days ago, she started to have severe vomiting. She says she vomited violently about 9 times. Each time she brought up bright red blood. She says that she felt very weak afterwards, but was home alone, and did not want to bother her father, who was on a hunting trip. She felt too weak to drive herself to the emergency room, so she waited until he got home today, and had him bring her in. ER evaluation showed tachycardia, tachypnea, hemoglobin of 3, MCV of 62, elevated lactic acid , marked hyperglycemia. The patient was resuscitated with fluids and O- blood in the ER, and then transferred to the intensive care unit. The patient denies the use of NSAIDs or aspirin. She drinks alcohol extremely rarely. She previously smoked from age 22 until age 45, and then quit 2 years ago. She does currently smoke E cigarettes. She does not use drugs. She otherwise notes she is cold all the time. She has had some mild shortness of breath on and off for several months. She notes only occasional upper abdominal discomfort, but no nausea and no vomiting until last weekend. She says she did have some sinus symptoms about 2 weeks ago, and went to see someone who prescribed doxycycline for possible sinus infection. He has been quite fatigued, and says she can hear the blood rushing in her ears at times. She has been feeling a little dizzy. She denies headaches, new eye or ear symptoms, sore throat or cough. He denies chest pain or palpitations. She denies dysuria May 08: The patient received a total of 4 units of blood overnight. Hemoglobin is getting closer to normal this morning. Today, she says she is feeling a bit better. She is having a fair amount of epigastric and substernal chest discomfort since the esophageal banding. Dilaudid helps with the pain, but makes her feel very groggy. She did try to eat some Jell-O this morning, but then vomited up a small amount. Did have a melanotic stool this morning. Otherwise, she denies fever chills, headaches or dizziness, palpitations or shortness of breath, diarrhea or constipation, dysuria. Next She is quizzed more closely about her medical history today. She was seeing a Dr. Quiles about 10 years ago. She says she did develop some kind of liver problem after taking a diet medicine called metabolite. She says he treated her with a liquid diet for a while and it seemed to go away. She said there were a couple of years about 20 years ago where she used to drink heavily on the weekends, but none since then. She denies ever using any sort of drugs or being sexually active with a known drug user. Her nurse notes that her urine output has dropped off quite a bit over the last couple of hours. Patient is receiving about 160 mL an hour of fluids and medications. Potassium was also low this morning. May 09: Head CT scan done this morning, results as noted in GIs note, shrunken liver, splenomegaly, evidence of varices. No evidence of portal vein thrombosis. Also small lesion in the liver, which will be characterized by MRI. Patient is without specific complaints. Old records from [facility] obtained. In March 2009 she had some lateral left abdominal pain, had CT of the abdomen at that time which showed normal liver and spleen. AST was mildly elevated at 76, ALT at 89. May 10: Feeling abdominal bloating this morning. Tolerated 1 further unit PRBC yesterday evening. Remains on octreotide until afternoon. No further melena, no n/v. Tolerating her diet. Chest pain from variceal banding improving. MRI of abdomen pending to characterize small hepatic lesion. - Constitutional Vitals: Vital Signs Temp Pulse Resp BP Pulse Ox 97.9 F 86 15 134/89 100 05/10/17 03:59 05/10/17 03:59 05/09/17 16:00 05/10/17 03:59 05/10/17 03:59 Period Temp Pulse Resp BP Sys/Ybarra Pulse Ox Last 24 Hr 97.8 F-98.9 F 76-90 13-18 102-134/73-89 94-100 Intake and Output 05/09/17 05/10/17 05/10/17 21:59 05:59 13:59 Intake Total 910 / 910 360 / 360 Output Total 1150 / 1150 480 / 480 Balance -240 / -240 -120 / -120 Weight 137 lb 1.6 oz Intake & Output: Intake & Output 05/09/17 05/10/17 05/10/17 21:59 05:59 13:59 Intake Total 910 / 910 360 / 360 Output Total 1150 / 1150 480 / 480 Balance -240 / -240 -120 / -120 Weight 137 lb 1.6 oz Intake: IV 610 / 610 Oral 300 / 300 360 / 360 Output: Urine Catheter Amount 1000 / 1000 Void Amount 480 / 480 Urine/Stool Mix 150 / 150 General appearance: average body habitus, no acute distress - Head Head exam: Present: atraumatic, normal inspection - Eye Eye exam: Absent: scleral icterus - Respiratory Respiratory exam: Present: CTAB (diminished at bases). Absent: rales, wheezes - Cardiovascular Cardiovascular exam: Present: normal rate and rhythm. Absent: diastolic murmur , systolic murmur Additional comments: no peripheral edema - GI/Abdominal GI/Abdominal exam: Present: normal bowel sounds, soft, distended (moderately). Absent: organomegaly, rebound, tenderness - Extremities Exam Extremities exam: Present: normal inspection. Absent: pedal edema - Neurological Exam Neurological exam: Present: alert, CN II-XII intact, oriented X3. Absent: motor sensory deficit - Skin Skin exam: Present: dry, warm Medical - PN: Obj Da - Labs CBC & Chem 7: 05/10/17 04:07 05/10/17 04:07 Labs: Abnormal Lab Results 05/10/17 05/10/17 05/10/17 04:07 04:07 04:07 WBC RBC 3.65 L Hgb 9.6 L Hct 28.7 L POC Hct MCV 78.6 L MCH MCHC RDW 24.7 H Plt Count 109 L Gran % Lymph % (Auto) Gran # Lymph # (Auto) 1.4 L POC PT PT 15.0 H POC INR INR 1.2 H VBG Lactic Acid POC Sodium Sodium Potassium POC Chloride Chloride Carbon Dioxide POC Total CO2 Anion Gap POC BUN BUN Creatinine 0.3 L POC Creatinine Glucose POC Glucose Hemoglobin A1c Calcium 7.3 L POC WB Ioniz Calcium Phosphorus 2.2 L Total Bilirubin 2.5 H Direct Bilirubin 0.8 H GGT 77 H AST 191 H ALT 186 H Lactate Dehydrogenase Total Protein 5.3 L Albumin 2.8 L Lipase Urine Glucose (UA) Urine Ketones Urine Urobilinogen Urine Bacteria ANGELO Screen 05/09/17 05/09/17 05/09/17 14:35 04:14 04:14 WBC RBC 3.23 L Hgb 7.8 L 8.0 L Hct 24.4 L 24.8 L POC Hct MCV 76.8 L MCH 24.8 L MCHC RDW 25.0 H Plt Count 108 L Gran % Lymph % (Auto) Gran # Lymph # (Auto) 1.3 L POC PT PT 15.8 H POC INR INR 1.2 H VBG Lactic Acid POC Sodium Sodium Potassium POC Chloride Chloride Carbon Dioxide POC Total CO2 Anion Gap POC BUN BUN Creatinine POC Creatinine Glucose POC Glucose Hemoglobin A1c Calcium POC WB Ioniz Calcium Phosphorus Total Bilirubin Direct Bilirubin GGT AST ALT Lactate Dehydrogenase Total Protein Albumin Lipase Urine Glucose (UA) Urine Ketones Urine Urobilinogen Urine Bacteria ANGELO Screen 05/09/17 05/08/17 05/08/17 04:14 14:27 12:50 WBC RBC Hgb 8.4 L Hct 25.7 L POC Hct MCV MCH MCHC RDW Plt Count Gran % Lymph % (Auto) Gran # Lymph # (Auto) POC PT PT 17.0 H POC INR INR 1.3 H VBG Lactic Acid POC Sodium Sodium Potassium POC Chloride Chloride Carbon Dioxide POC Total CO2 Anion Gap POC BUN BUN Creatinine 0.3 L POC Creatinine Glucose 112 H POC Glucose Hemoglobin A1c Calcium 7.1 L POC WB Ioniz Calcium Phosphorus 1.8 L Total Bilirubin 1.6 H Direct Bilirubin 0.8 H GGT 79 H AST 260 H ALT 226 H Lactate Dehydrogenase Total Protein 5.2 L Albumin 2.7 L Lipase Urine Glucose (UA) Urine Ketones Urine Urobilinogen Urine Bacteria ANGELO Screen 05/08/17 05/08/17 05/08/17 12:30 10:35 06:20 WBC RBC Hgb 8.5 L 8.5 L Hct 25.3 L 25.4 L POC Hct MCV MCH MCHC RDW Plt Count Gran % Lymph % (Auto) Gran # Lymph # (Auto) POC PT PT POC INR INR VBG Lactic Acid POC Sodium Sodium Potassium POC Chloride Chloride Carbon Dioxide POC Total CO2 Anion Gap POC BUN BUN Creatinine POC Creatinine Glucose POC Glucose Hemoglobin A1c 6.1 H Calcium POC WB Ioniz Calcium Phosphorus Total Bilirubin Direct Bilirubin GGT AST ALT Lactate Dehydrogenase Total Protein Albumin Lipase Urine Glucose (UA) Urine Ketones Urine Urobilinogen Urine Bacteria ANGELO Screen 05/08/17 05/08/17 05/08/17 04:15 04:15 02:24 WBC RBC 3.39 L Hgb 8.6 L 9.0 L Hct 25.8 L 27.1 L POC Hct MCV 76.2 L MCH 25.3 L MCHC RDW 25.6 H Plt Count 106 L Gran % Lymph % (Auto) Gran # Lymph # (Auto) POC PT PT POC INR INR VBG Lactic Acid POC Sodium Sodium 128 L Potassium 3.2 L POC Chloride Chloride 95 L Carbon Dioxide POC Total CO2 Anion Gap POC BUN BUN Creatinine 0.4 L POC Creatinine Glucose 136 H POC Glucose Hemoglobin A1c Calcium 7.1 L POC WB Ioniz Calcium Phosphorus 1.8 L Total Bilirubin 5.8 H Direct Bilirubin 2.4 H GGT 95 H AST 291 H ALT 253 H Lactate Dehydrogenase 277 H Total Protein 5.3 L Albumin 3.0 L Lipase Urine Glucose (UA) Urine Ketones Urine Urobilinogen Urine Bacteria ANGELO Screen 05/07/17 05/07/17 05/07/17 22:08 21:43 21:43 WBC RBC Hgb 9.1 L Hct 27.9 L POC Hct MCV MCH MCHC RDW Plt Count Gran % Lymph % (Auto) Gran # Lymph # (Auto) POC PT PT POC INR INR VBG Lactic Acid POC Sodium Sodium Potassium POC Chloride Chloride Carbon Dioxide POC Total CO2 Anion Gap POC BUN BUN Creatinine POC Creatinine Glucose POC Glucose Hemoglobin A1c Calcium POC WB Ioniz Calcium Phosphorus Total Bilirubin Direct Bilirubin GGT AST ALT Lactate Dehydrogenase Total Protein Albumin Lipase Urine Glucose (UA) >=500 A Urine Ketones 20 A Urine Urobilinogen 4.0 A Urine Bacteria Few A ANGELO Screen Pos 1:80 or greater A 05/07/17 05/07/17 05/07/17 16:14 15:10 15:10 WBC RBC Hgb Hct POC Hct < 15.0 L* MCV MCH MCHC RDW Plt Count Gran % Lymph % (Auto) Gran # Lymph # (Auto) POC PT 16.1 H PT POC INR 1.4 H INR VBG Lactic Acid 6.6 H* POC Sodium 125 L Sodium 122 L Potassium POC Chloride 92 L Chloride 87 L Carbon Dioxide 15 L POC Total CO2 18 L Anion Gap 20.0 H POC BUN 39 H BUN 37 H Creatinine POC Creatinine 0.5 L Glucose 333 H POC Glucose 306 H Hemoglobin A1c Calcium 7.7 L POC WB Ioniz Calcium 0.99 L Phosphorus Total Bilirubin 1.4 H Direct Bilirubin GGT AST 382 H ALT 311 H Lactate Dehydrogenase Total Protein Albumin Lipase 119 H Urine Glucose (UA) Urine Ketones Urine Urobilinogen Urine Bacteria ANGELO Screen 05/07/17 15:10 WBC 13.5 H RBC 1.80 L Hgb 3.4 L* Hct 11.2 L* POC Hct MCV 62.1 L MCH 18.7 L MCHC 30.2 L RDW 26.3 H Plt Count Gran % 79.1 H Lymph % (Auto) 14.4 L Gran # 10.7 H Lymph # (Auto) POC PT PT POC INR INR VBG Lactic Acid POC Sodium Sodium Potassium POC Chloride Chloride Carbon Dioxide POC Total CO2 Anion Gap POC BUN BUN Creatinine POC Creatinine Glucose POC Glucose Hemoglobin A1c Calcium POC WB Ioniz Calcium Phosphorus Total Bilirubin Direct Bilirubin GGT AST ALT Lactate Dehydrogenase Total Protein Albumin Lipase Urine Glucose (UA) Urine Ketones Urine Urobilinogen Urine Bacteria ANGELO Screen Meds: Medications Dextrose (Dextrose 50%) 0 ml IV UD PRN PRN Reason: Hypoglycemia Diagnostic Test (Pha) (Accu-Chek) 1 each FS ACHS [facility] Last Admin: 05/09/17 21:27 Dose: 1 each Diphenhydramine HCl (Benadryl) 25 mg PO Q4HP PRN PRN Reason: Itching Furosemide (Lasix) 20 mg IV ONCE ONE Stop: 05/10/17 08:14 Hydromorphone HCl (Dilaudid) 0.5 mg IV Q4-6HP PRN PRN Reason: Pain Last Admin: 05/09/17 18:30 Dose: 0.5 mg Octreotide Acetate 500 mcg/ (Sodium Chloride) 500 mls @ 50 mls/hr IV Q10H [facility] PRN Reason: Protocol Last Admin: 05/10/17 04:08 Dose: 50 mls/hr Insulin Human Lispro (Humalog) 0 unit SQ ACHS [facility] PRN Reason: Protocol Last Admin: 05/09/17 21:28 Dose: Not Given Lorazepam (Ativan) 1 mg IV Q2HP PRN PRN Reason: ANXIETY/SEDATION Magnesium Hydroxide (Milk Of Magnesia) 30 ml PO DAILYP PRN PRN Reason: Constipation Morphine Sulfate (Morphine) 4 mg IV Q2HP PRN PRN Reason: Pain Naloxone HCl (Narcan) 0.1 mg IV Q2MIN PRN PRN Reason: Opiate Reversal Ondansetron HCl (Zofran) 4 mg IV Q4-6HP PRN PRN Reason: Nausea And Vomiting Sodium Chloride (Saline Flush) 10 ml IV Q8 [facility] Last Admin: 05/10/17 05:11 Dose: Not Given Medical - PN: A/P (1) Cirrhosis of liver Status: Acute Current Visit: Yes (2) Acute hyperglycemia Status: Acute Current Visit: Yes (3) Esophageal varices determined by endoscopy Status: Acute Current Visit: Yes (4) Upper gastrointestinal hemorrhage Status: Acute Current Visit: Yes (5) Microcytic anemia Status: Chronic Current Visit: Yes - Narrative A/P Narrative: 1. GI. Patient presents with acute upper GI hemorrhage due to previously undiagnosed esophageal varices and cirrhosis. S/P banding 05/07. Transfused 4 units PRBC initially, Hb trended down to 7.6, now 9.6 after 1 unit PRBC 05/09. -Continue octreotide until this afternoon, then begin nadolol 20 mg daily, titrate to HR 55. -Follow H/H. -Autoimmune/hepatitis workup is in progress to evaluate for cause of cirrhosis. -PPI drip stopped. -Abdomen distended, suspect some third spacing from fluid resuscitation in setting of cirrhosis. Will give 20 mg lasix IV Thursday. 2. Endocrine. Patient presented with severe hyperglycemia, new onset diabetes. -Initial hyperglycemia controlled after insulin, glucoses now running in the 100s. -Hemoglobin A1c 6.1, suggesting chronic mild hyperglycemia, likely can be managed with diet as an outpatient -Accu-Cheks and sliding scale insulin. -Diabetes education. 3. Hyponatremia. Probably pseudohyponatremia, due to hyperglycemia. Resolved. 4. Hypovolemic shock, resolved Patient presented with severe blood loss anemia, tachycardia, lactic acidosis. -s/p aggressive fluid resuscitation and transfusion. 5. CODE STATUS: Full code. She says her father will act as her POA. 6. DVT prophylaxis: SCDs. Medical - PN: Qual - VTE Deep Vein Thrombosis/Pulmonary Embolism Present on Admission: No
[2017-05-10] MEDS: INSULIN LISPRO 1 UNIT/0.01 ML UNIT SQ SCH ×4 (08:51→22:51)
[2017-05-10] MEDS: HYDROmorphone 2 MG/ML SYRINGE IV PRN ×2 (13:20→20:32)
[2017-05-10] MEDS ORDERED: SIMETHICONE 80 MG TAB.CHEW CHEWED PRN (14:36)
[2017-05-10] MEDS ORDERED: NADOLOL 20 MG TABLET PO SCH (15:00)
[2017-05-11] MEDS: 0.9 % SODIUM CHLORIDE 10 ML SYRINGE IV SCH ×4 (05:16→21:40)
[2017-05-11 05:32] LABS: Basophils # (Auto) 0 K/mcL (0.0-0.3); Basophils % (Auto) 0 % (0.0-2.0); Eosinophils # (Auto) 0.1 K/mcL (0.0-0.7); Eosinophils % (Auto) 2.9 % (0.0-7.0); Granulocytes % (Auto) 68.9 % (38.0-78.0); Lymphocytes % (Auto) 21.6 % (15.5-49.0); Mean Cell Volume 78.3 fL (80.0-100.0); Mean Corpuscular HGB Conc 32.6 g/dL (31.0-36.0); Mean Corpuscular Hemoglobin 25.5 pg (26.0-34.0); Monocytes # (Auto) 0.3 K/mcL (0.1-0.9); Monocytes % (Auto) 6.6 % (1.0-12.0); Platelet Count 119 K/mcL (140-440); RBC 3.87 M/mcL (4.00-5.20); Red Cell Distribution Width 25.2 % (11.5-14.5)
[2017-05-11 05:59] LABS: ALT/SGPT 151 U/l (0-40); Albumin/Globulin Ratio 1.2 (1.0-2.3); Alkaline Phosphatase 90 U/L (39-117); Bilirubin,Direct 0.6 mg/dL (0.0-0.3); Blood Urea Nitrogen 7 mg/dl (6-20); Gamma Glutamyl Transpeptidase 82 U/L (5-36); Magnesium 1.8 mg/dL (1.6-2.5); Uric Acid 4.8 mg/dL (2.5-8.0)
[2017-05-11] MEDS: INSULIN LISPRO 1 UNIT/0.01 ML UNIT SQ SCH ×4 (07:27→21:39)
[2017-05-11 08:59] LABS: Actin (Smooth Muscle) AB IGG 49 U; Alpha 1 Anti-Trypsin 203 mg/dL (83-199)
[2017-05-11] MEDS ORDERED: NADOLOL 20 MG TABLET PO SCH (09:00)
[2017-05-11 11:56] LABS: Hepatitis A Antibody Total NON-REACTIVE (NON-REACTIVE); Hepatitis B SAB Quant <5 mIU/mL (> OR = 10); Hepatitis B Surface Antigen NON-REACTIVE (NON-REACTIVE); Hepatitis C Virus Antibody NON-REACTIVE (NON-REACTIVE)
[2017-05-11] MEDS ORDERED: SIMETHICONE 80 MG TAB.CHEW CHEWED PRN (15:00)
[2017-05-11] MEDS ORDERED: diphenhydrAMINE 25 MG CAPSULE PO PRN (15:00)
[2017-05-11] MEDS ORDERED: MAGNESIUM HYDROXIDE 30 ML ORAL.SUSP PO PRN (15:00)
[2017-05-11] MEDS ORDERED: DEXTROSE 50% 50 ML VIAL IV PRN (15:00)
[2017-05-11] MEDS ORDERED: ONDANSETRON 4 MG/2 ML VIAL IV PRN (15:00)
[2017-05-11] MEDS ORDERED: NALOXONE HCL 0.4 MG/ML VIAL IV PRN (15:00)
[2017-05-11] MEDS ORDERED: LORazepam 2 MG/ML VIAL IV PRN (15:00)
--- NOTE | 2017-05-11 18:15 | Internal Med Progress Note ---
Medical - PN: Subj Patient information: Note initiated : 05/11/17 at 6:13 pm Service Date, if different from initiated Date: [] Patient: Rona Rees a 47 y/o F admitted on 05/07/17 for Blood In Stool, Coughed Up Blood. Chief Complaint: f/u cirrhosis Interval history: May 07, 2013: History of present illness: Ms. Rees is a 47 year old female with no known significant past medical problems. She reports that she has had some intermittent stomach discomfort since about November of this year. She is not sure if she might of had black stools in the past, but does not recall black or bloody stools. 4 days ago, she started to have severe vomiting. She says she vomited violently about 9 times. Each time she brought up bright red blood. She says that she felt very weak afterwards, but was home alone, and did not want to bother her father, who was on a hunting trip. She felt too weak to drive herself to the emergency room, so she waited until he got home today, and had him bring her in. ER evaluation showed tachycardia, tachypnea, hemoglobin of 3, MCV of 62, elevated lactic acid , marked hyperglycemia. The patient was resuscitated with fluids and O- blood in the ER, and then transferred to the intensive care unit. The patient denies the use of NSAIDs or aspirin. She drinks alcohol extremely rarely. She previously smoked from age 22 until age 45, and then quit 2 years ago. She does currently smoke E cigarettes. She does not use drugs. She otherwise notes she is cold all the time. She has had some mild shortness of breath on and off for several months. She notes only occasional upper abdominal discomfort, but no nausea and no vomiting until last weekend. She says she did have some sinus symptoms about 2 weeks ago, and went to see someone who prescribed doxycycline for possible sinus infection. He has been quite fatigued, and says she can hear the blood rushing in her ears at times. She has been feeling a little dizzy. She denies headaches, new eye or ear symptoms, sore throat or cough. He denies chest pain or palpitations. She denies dysuria May 08: The patient received a total of 4 units of blood overnight. Hemoglobin is getting closer to normal this morning. Today, she says she is feeling a bit better. She is having a fair amount of epigastric and substernal chest discomfort since the esophageal banding. Dilaudid helps with the pain, but makes her feel very groggy. She did try to eat some Jell-O this morning, but then vomited up a small amount. Did have a melanotic stool this morning. Otherwise, she denies fever chills, headaches or dizziness, palpitations or shortness of breath, diarrhea or constipation, dysuria. Next She is quizzed more closely about her medical history today. She was seeing a Dr. Quiles about 10 years ago. She says she did develop some kind of liver problem after taking a diet medicine called metabolite. She says he treated her with a liquid diet for a while and it seemed to go away. She said there were a couple of years about 20 years ago where she used to drink heavily on the weekends, but none since then. She denies ever using any sort of drugs or being sexually active with a known drug user. Her nurse notes that her urine output has dropped off quite a bit over the last couple of hours. Patient is receiving about 160 mL an hour of fluids and medications. Potassium was also low this morning. May 09: Head CT scan done this morning, results as noted in GIs note, shrunken liver, splenomegaly, evidence of varices. No evidence of portal vein thrombosis. Also small lesion in the liver, which will be characterized by MRI. Patient is without specific complaints. Old records from [facility] obtained. In March 2009 she had some lateral left abdominal pain, had CT of the abdomen at that time which showed normal liver and spleen. AST was mildly elevated at 76, ALT at 89. May 10: Feeling abdominal bloating this morning. Tolerated 1 further unit PRBC yesterday evening. Remains on octreotide until afternoon. No further melena, no n/v. Tolerating her diet. Chest pain from variceal banding improving. MRI of abdomen pending to characterize small hepatic lesion. May 11: Abdomen bit less distended today. Had MRI done this afternoon, results are pending. Tolerating nadolol. First dose yesterday afternoon, increased to 40 mg daily this morning. Appetite is okay. - Constitutional Vitals: Vital Signs Temp Pulse Resp BP Pulse Ox 98.5 F 73 16 105/67 96 05/11/17 12:00 05/11/17 07:23 05/11/17 12:00 05/11/17 12:00 05/11/17 12:00 Period Temp Pulse Resp BP Sys/Ybarra Pulse Ox Last 24 Hr 97.6 F-98.8 F 71-75 12-16 99-125/67-89 96-97 Intake and Output 05/11/17 05/11/17 05/11/17 05:59 13:59 21:59 Intake Total 240 / 240 240 / 240 240 / 240 Output Total 250 / 250 425 / 425 300 / 300 Balance -10 / -10 -185 / -185 -60 / -60 Intake & Output: Intake & Output 05/11/17 05/11/17 05/11/17 05:59 13:59 21:59 Intake Total 240 / 240 240 / 240 240 / 240 Output Total 250 / 250 425 / 425 300 / 300 Balance -10 / -10 -185 / -185 -60 / -60 Intake: Oral 240 / 240 240 / 240 240 / 240 Output: Void Amount 250 / 250 425 / 425 300 / 300 Other: Meal Breakfast Dinner Percent of Meal Consumed 100% 100% Feeding Ability Independent Independent # Voids 1 - Additional findings Additional findings: General: Sleeping, arouses, no acute distress Chest: Clear, respirations unlabored Cardiovascular: Regular, no peripheral edema Abdomen: Mild distention, soft, nontender, active bowel sounds. No guarding or rebound. Neuro: Alert, oriented 3, moves all extremities, nonfocal Medical - PN: Obj Da - Labs CBC & Chem 7: 05/11/17 04:00 05/11/17 04:00 Labs: Abnormal Lab Results 05/11/17 05/11/17 05/11/17 04:00 04:00 04:00 RBC 3.87 L Hgb 9.9 L Hct 30.3 L MCV 78.3 L MCH 25.5 L RDW 25.2 H Plt Count 119 L Lymph # (Auto) 1.0 L PT 14.9 H INR Sodium 131 L Chloride 95 L Creatinine 0.4 L Glucose Calcium 7.7 L Phosphorus Total Bilirubin 1.7 H Direct Bilirubin 0.6 H GGT 82 H AST 140 H ALT 151 H Total Protein 5.6 L Albumin 3.0 L Daihc-1-Dvkvkpznuvv Actin IgG Antibody Hep Bs Antibody, Quant 05/10/17 05/10/17 05/10/17 04:07 04:07 04:07 RBC 3.65 L Hgb 9.6 L Hct 28.7 L MCV 78.6 L MCH RDW 24.7 H Plt Count 109 L Lymph # (Auto) 1.4 L PT 15.0 H INR 1.2 H Sodium Chloride Creatinine 0.3 L Glucose Calcium 7.3 L Phosphorus 2.2 L Total Bilirubin 2.5 H Direct Bilirubin 0.8 H GGT 77 H AST 191 H ALT 186 H Total Protein 5.3 L Albumin 2.8 L Cumpz-0-Txlrhtgwnjb Actin IgG Antibody Hep Bs Antibody, Quant 05/09/17 05/09/17 05/09/17 14:35 04:14 04:14 RBC 3.23 L Hgb 7.8 L 8.0 L Hct 24.4 L 24.8 L MCV 76.8 L MCH 24.8 L RDW 25.0 H Plt Count 108 L Lymph # (Auto) 1.3 L PT 15.8 H INR 1.2 H Sodium Chloride Creatinine Glucose Calcium Phosphorus Total Bilirubin Direct Bilirubin GGT AST ALT Total Protein Albumin Idspr-0-Aaphepflbsj Actin IgG Antibody Hep Bs Antibody, Quant 05/09/17 05/07/17 05/07/17 04:14 21:43 21:43 RBC Hgb Hct MCV MCH RDW Plt Count Lymph # (Auto) PT INR Sodium Chloride Creatinine 0.3 L Glucose 112 H Calcium 7.1 L Phosphorus 1.8 L Total Bilirubin 1.6 H Direct Bilirubin 0.8 H GGT 79 H AST 260 H ALT 226 H Total Protein 5.2 L Albumin 2.7 L Bgrza-2-Hrgxcvytvbs 203 H Actin IgG Antibody 49 A Hep Bs Antibody, Quant 05/07/17 15:10 RBC Hgb Hct MCV MCH RDW Plt Count Lymph # (Auto) PT INR Sodium Chloride Creatinine Glucose Calcium Phosphorus Total Bilirubin Direct Bilirubin GGT AST ALT Total Protein Albumin Bjrgy-7-Tyedtlpbrxn Actin IgG Antibody Hep Bs Antibody, Quant <5 A Meds: Medications Dextrose (Dextrose 50%) 0 ml IV UD PRN PRN Reason: Hypoglycemia Diagnostic Test (Pha) (Accu-Chek) 1 each FS ACHS [facility] Last Admin: 05/11/17 16:50 Dose: 1 each Diphenhydramine HCl (Benadryl) 25 mg PO Q4HP PRN PRN Reason: Itching Insulin Human Lispro (Humalog) 0 unit SQ ACHS [facility] PRN Reason: Protocol Last Admin: 05/11/17 17:46 Dose: Not Given Lorazepam (Ativan) 1 mg IV Q2HP PRN PRN Reason: ANXIETY/SEDATION Magnesium Hydroxide (Milk Of Magnesia) 30 ml PO DAILYP PRN PRN Reason: Constipation Morphine Sulfate (Morphine) 4 mg IV Q2HP PRN PRN Reason: Pain Nadolol (Corgard) 40 mg PO DAILY [facility] Naloxone HCl (Narcan) 0.1 mg IV Q2MIN PRN PRN Reason: Opiate Reversal Ondansetron HCl (Zofran) 4 mg IV Q4-6HP PRN PRN Reason: Nausea And Vomiting Simethicone (Mylicon) 80 mg CHEWED QIDP PRN PRN Reason: Dyspepsia Sodium Chloride (Saline Flush) 10 ml IV Q8 [facility] Last Admin: 05/11/17 14:15 Dose: 10 ml Medical - PN: A/P (1) Cirrhosis of liver Status: Acute Current Visit: Yes (2) Acute hyperglycemia Status: Acute Current Visit: Yes (3) Esophageal varices determined by endoscopy Status: Acute Current Visit: Yes (4) Upper gastrointestinal hemorrhage Status: Acute Current Visit: Yes (5) Microcytic anemia Status: Chronic Current Visit: Yes - Narrative A/P Narrative: 1. GI. Patient presents with acute upper GI hemorrhage due to previously undiagnosed esophageal varices and cirrhosis. S/P banding 05/07. Transfused 4 units PRBC initially, Hb trended down to 7.6, now up to 9.9 after 1 further unit PRBC . -Continue Nadolol 40 mg daily, titrate to HR 55. -Follow H/H. -Autoimmune/hepatitis workup is in progress, but has positive anti-actin Ab's, negative HCV Ab -Abdomen less distended, received 20 mg lasix IV Thursday. -Follow-up MRI to evaluate lesion in liver seen on CT 2. Endocrine. Patient presented with severe hyperglycemia, new onset diabetes. -Initial hyperglycemia controlled after insulin, glucoses now running in the 100s. -Hemoglobin A1c 6.1, suggesting chronic mild hyperglycemia, likely can be managed with diet as an outpatient -Accu-Cheks and sliding scale insulin. -Diabetes education. 3. Hyponatremia. Probably pseudohyponatremia, due to hyperglycemia. Resolved. 4. Hypovolemic shock, resolved Patient presented with severe blood loss anemia, tachycardia, lactic acidosis. -s/p aggressive fluid resuscitation and transfusion. 5. CODE STATUS: Full code. She says her father will act as her POA. 6. DVT prophylaxis: SCDs. Medical - PN: Qual - VTE Deep Vein Thrombosis/Pulmonary Embolism Present on Admission: No
[2017-05-12] MEDS: 0.9 % SODIUM CHLORIDE 10 ML SYRINGE IV SCH ×3 (05:42→22:43)
[2017-05-12 06:26] LABS: Basophils # (Auto) 0 K/mcL (0.0-0.3); Basophils % (Auto) 0.5 % (0.0-2.0); Eosinophils # (Auto) 0.1 K/mcL (0.0-0.7); Eosinophils % (Auto) 1.7 % (0.0-7.0); Granulocytes % (Auto) 61.1 % (38.0-78.0); Lymphocytes # (Auto) 1.1 K/mcL (1.5-4.8); Lymphocytes % (Auto) 26.9 % (15.5-49.0); Mean Cell Volume 78.6 fL (80.0-100.0); Mean Corpuscular HGB Conc 32.6 g/dL (31.0-36.0); Mean Corpuscular Hemoglobin 25.7 pg (26.0-34.0); Monocytes # (Auto) 0.4 K/mcL (0.1-0.9); Monocytes % (Auto) 9.8 % (1.0-12.0); Platelet Count 113 K/mcL (140-440); RBC 3.64 M/mcL (4.00-5.20); Red Cell Distribution Width 25.6 % (11.5-14.5)
[2017-05-12 07:07] LABS: Ceruloplasmin 38 mg/dL (18-53)
[2017-05-12] MEDS: INSULIN LISPRO 1 UNIT/0.01 ML UNIT SQ SCH ×4 (07:30→22:43)
[2017-05-12 08:19] LABS: ALT/SGPT 109 U/l (0-40); Albumin 2.7 gm/dL (3.2-5.2); Albumin/Globulin Ratio 1.1 (1.0-2.3); Alkaline Phosphatase 88 U/L (39-117); Bilirubin,Direct 0.5 mg/dL (0.0-0.3); Blood Urea Nitrogen 7 mg/dl (6-20); Gamma Glutamyl Transpeptidase 77 U/L (5-36); Magnesium 1.9 mg/dL (1.6-2.5); Uric Acid 5.1 mg/dL (2.5-8.0)
[2017-05-12] MEDS: NADOLOL 20 MG TABLET PO SCH (09:51)
--- NOTE | 2017-05-12 13:46 | Magnetic Resonance Report ---
CLINICAL INFORMATION: 9.5 mm hyperenhancing lesion in the right hepatic lobe on CT. Evaluate for hepatoma. Known cirrhosis COMPARISON: Abdomen CT from 05/09/2017. TECHNIQUE: Axial T1 SSFSE phase-in phase out lava pre and dynamic post contrast T2 coronal SSFSE evident SPGR pre and post Magnevist images were acquired FINDINGS: The lung bases are clear. There are no effusions. The visualized heart is normal. Images through the abdomen show moderate cirrhotic changes - as previously seen. In the anterior segment of the right hepatic lobe, there is an 8.5 mm tubular serpiginous lesion evident on arterial phase images which quickly becomes isosignal on the three minute delayed images. It supplied by mildly enlarged branch off the hepatic artery and drains into a large branch of the middle hepatic vein. 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 It correlates with the enhancing lesion seen on CT. No other focal lesion seen within the cirrhotic liver. Multiple stones and sludge in the gallbladder. Gallbladder wall is normal thickness - no evidence of cholecystitis. Intrahepatic and common bile ducts are normal caliber - CBD is approximately 6 mm. The spleen is mildly enlarged. There is mild enlargement of the portal veins and tributaries with recanalization of the umbilical vein. Mild perisplenic and perigastric varices are appreciated.. Moderate ascites is noted. Both kidneys, adrenal glands, pancreas and aorta are normal. The stomach and visualized small/large bowel are unremarkable. IMPRESSION: 1. 9 mm serpiginous lesion in the right hepatic lobe which exhibits hyperenhancement only on arterial phase. 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 Suggest: Correlation with alpha-fetoprotein to ensure there is not marked elevation. Also suggest limited liver ultrasound to confirm this lesion has a arteriovenous fistula 2. Moderate cirrhotic changes with portal hypertension featuring enlarging the portal vein and tributaries, varices in the perigastric/splenic region and umbilical vein recanalization. The spleen is moderately enlarged. Moderate ascites 3. Cholelithiasis. Gallbladder and bile ducts are otherwise normal Interpreted and Authenticated by: Drew Kincaid 05/12/17
--- NOTE | 2017-05-12 20:14 | Internal Med Progress Note ---
Medical - PN: Subj Patient information: Note initiated : 05/12/17 at 8:12 pm Service Date, if different from initiated Date: [] Patient: Rona Rees a 47 y/o F admitted on 05/07/17 for Blood In Stool, Coughed Up Blood. Chief Complaint: follow up cirrhosis, GI bleed Interval history: May 07, 2013: History of present illness: Ms. Rees is a 47 year old female with no known significant past medical problems. She reports that she has had some intermittent stomach discomfort since about November of this year. She is not sure if she might of had black stools in the past, but does not recall black or bloody stools. 4 days ago, she started to have severe vomiting. She says she vomited violently about 9 times. Each time she brought up bright red blood. She says that she felt very weak afterwards, but was home alone, and did not want to bother her father, who was on a hunting trip. She felt too weak to drive herself to the emergency room, so she waited until he got home today, and had him bring her in. ER evaluation showed tachycardia, tachypnea, hemoglobin of 3, MCV of 62, elevated lactic acid , marked hyperglycemia. The patient was resuscitated with fluids and O- blood in the ER, and then transferred to the intensive care unit. The patient denies the use of NSAIDs or aspirin. She drinks alcohol extremely rarely. She previously smoked from age 22 until age 45, and then quit 2 years ago. She does currently smoke E cigarettes. She does not use drugs. She otherwise notes she is cold all the time. She has had some mild shortness of breath on and off for several months. She notes only occasional upper abdominal discomfort, but no nausea and no vomiting until last weekend. She says she did have some sinus symptoms about 2 weeks ago, and went to see someone who prescribed doxycycline for possible sinus infection. He has been quite fatigued, and says she can hear the blood rushing in her ears at times. She has been feeling a little dizzy. She denies headaches, new eye or ear symptoms, sore throat or cough. He denies chest pain or palpitations. She denies dysuria May 08: The patient received a total of 4 units of blood overnight. Hemoglobin is getting closer to normal this morning. Today, she says she is feeling a bit better. She is having a fair amount of epigastric and substernal chest discomfort since the esophageal banding. Dilaudid helps with the pain, but makes her feel very groggy. She did try to eat some Jell-O this morning, but then vomited up a small amount. Did have a melanotic stool this morning. Otherwise, she denies fever chills, headaches or dizziness, palpitations or shortness of breath, diarrhea or constipation, dysuria. Next She is quizzed more closely about her medical history today. She was seeing a Dr. Quiles about 10 years ago. She says she did develop some kind of liver problem after taking a diet medicine called metabolite. She says he treated her with a liquid diet for a while and it seemed to go away. She said there were a couple of years about 20 years ago where she used to drink heavily on the weekends, but none since then. She denies ever using any sort of drugs or being sexually active with a known drug user. Her nurse notes that her urine output has dropped off quite a bit over the last couple of hours. Patient is receiving about 160 mL an hour of fluids and medications. Potassium was also low this morning. May 09: Head CT scan done this morning, results as noted in GIs note, shrunken liver, splenomegaly, evidence of varices. No evidence of portal vein thrombosis. Also small lesion in the liver, which will be characterized by MRI. Patient is without specific complaints. Old records from [facility] obtained. In March 2009 she had some lateral left abdominal pain, had CT of the abdomen at that time which showed normal liver and spleen. AST was mildly elevated at 76, ALT at 89. May 10: Feeling abdominal bloating this morning. Tolerated 1 further unit PRBC yesterday evening. Remains on octreotide until afternoon. No further melena, no n/v. Tolerating her diet. Chest pain from variceal banding improving. MRI of abdomen pending to characterize small hepatic lesion. May 11: Abdomen bit less distended today. Had MRI done this afternoon, results are pending. Tolerating nadolol. First dose yesterday afternoon, increased to 40 mg daily this morning. Appetite is okay. May 12: Abdomen about the same today, passing flatus, looser stools, no melena. MRI shows AVM, no hepatoma. Continues to tolerate nadolol, pulse about 60 overnight. Remains on clear liquid. Discussed with Dr. Liao today. 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 We'll send a few more studies prior to follow-up with him. - Constitutional Vitals: Vital Signs Temp Pulse Resp BP Pulse Ox 97.8 F 62 16 95/59 97 05/12/17 19:35 05/12/17 19:35 05/12/17 19:35 05/12/17 19:35 05/12/17 19:35 Period Temp Pulse Resp BP Sys/Ybarra Pulse Ox Last 24 Hr 97.8 F-99.2 F 60-73 12-16 95-109/59-74 95-97 Intake and Output 05/12/17 05/12/17 05/12/17 05:59 13:59 21:59 Intake Total 120 / 120 560 / 560 440 / 440 Output Total 750 / 750 250 / 250 225 / 225 Balance -630 / -630 310 / 310 215 / 215 Weight 139 lb 8 oz Patient Weight 05/13/17 05:59 Weight 139 lb 8 oz Intake & Output: Intake & Output 05/12/17 05/12/17 05/12/17 05:59 13:59 21:59 Intake Total 120 / 120 560 / 560 440 / 440 Output Total 750 / 750 250 / 250 225 / 225 Balance -630 / -630 310 / 310 215 / 215 Weight 139 lb 8 oz Intake: Oral 120 / 120 560 / 560 440 / 440 Output: Void Amount 750 / 750 250 / 250 225 / 225 Other: Meal Lunch Percent of Meal Consumed 100% # Voids 1 1 1 # Bowel Movements 1 1 1 - Additional findings Additional findings: General: Laying in bed, awake, alert, no acute distress Chest: Clear to auscultation Saturnino vascular: Regular rate and rhythm, no peripheral edema Abdomen: Mildly distended, soft, nontender, normal bowel sounds. Neuro: Alert, moves all extremities, nonfocal, no asterixis. Medical - PN: Obj Da - Labs CBC & Chem 7: 05/12/17 03:40 05/12/17 03:40 Labs: Abnormal Lab Results 05/12/17 05/12/17 05/11/17 03:40 03:40 04:00 WBC 4.0 L RBC 3.64 L Hgb 9.3 L Hct 28.6 L MCV 78.6 L MCH 25.7 L RDW 25.6 H Plt Count 113 L Lymph # (Auto) 1.1 L PT 14.9 H INR Sodium Chloride Creatinine 0.3 L Glucose 138 H Calcium 7.7 L Phosphorus Total Bilirubin 1.3 H Direct Bilirubin 0.5 H GGT 77 H AST 88 H ALT 109 H Total Protein 5.2 L Albumin 2.7 L Lqism-5-Dfwgwfzyisi Actin IgG Antibody Hep Bs Antibody, Quant 05/11/17 05/11/17 05/10/17 04:00 04:00 04:07 WBC RBC 3.87 L Hgb 9.9 L Hct 30.3 L MCV 78.3 L MCH 25.5 L RDW 25.2 H Plt Count 119 L Lymph # (Auto) 1.0 L PT 15.0 H INR 1.2 H Sodium 131 L Chloride 95 L Creatinine 0.4 L Glucose Calcium 7.7 L Phosphorus Total Bilirubin 1.7 H Direct Bilirubin 0.6 H GGT 82 H AST 140 H ALT 151 H Total Protein 5.6 L Albumin 3.0 L Oopxl-2-Umyhdqklksz Actin IgG Antibody Hep Bs Antibody, Quant 05/10/17 05/10/17 05/07/17 04:07 04:07 21:43 WBC RBC 3.65 L Hgb 9.6 L Hct 28.7 L MCV 78.6 L MCH RDW 24.7 H Plt Count 109 L Lymph # (Auto) 1.4 L PT INR Sodium Chloride Creatinine 0.3 L Glucose Calcium 7.3 L Phosphorus 2.2 L Total Bilirubin 2.5 H Direct Bilirubin 0.8 H GGT 77 H AST 191 H ALT 186 H Total Protein 5.3 L Albumin 2.8 L Euxpa-9-Ocravopfnxu 203 H Actin IgG Antibody Hep Bs Antibody, Quant 05/07/17 05/07/17 21:43 15:10 WBC RBC Hgb Hct MCV MCH RDW Plt Count Lymph # (Auto) PT INR Sodium Chloride Creatinine Glucose Calcium Phosphorus Total Bilirubin Direct Bilirubin GGT AST ALT Total Protein Albumin Nbauu-0-Ppmfxnamsgn Actin IgG Antibody 49 A Hep Bs Antibody, Quant <5 A Meds: Medications Dextrose (Dextrose 50%) 0 ml IV UD PRN PRN Reason: Hypoglycemia Diagnostic Test (Pha) (Accu-Chek) 1 each FS ACHS HOLLIE Last Admin: 05/12/17 16:20 Dose: 1 each Diphenhydramine HCl (Benadryl) 25 mg PO Q4HP PRN PRN Reason: Itching Insulin Human Lispro (Humalog) 0 unit SQ ACHS HOLLIE PRN Reason: Protocol Last Admin: 05/12/17 16:21 Dose: Not Given Lorazepam (Ativan) 1 mg IV Q2HP PRN PRN Reason: ANXIETY/SEDATION Magnesium Hydroxide (Milk Of Magnesia) 30 ml PO DAILYP PRN PRN Reason: Constipation Morphine Sulfate (Morphine) 4 mg IV Q2HP PRN PRN Reason: Pain Nadolol (Corgard) 40 mg PO DAILY [facility] Last Admin: 05/12/17 09:51 Dose: 40 mg Naloxone HCl (Narcan) 0.1 mg IV Q2MIN PRN PRN Reason: Opiate Reversal Ondansetron HCl (Zofran) 4 mg IV Q4-6HP PRN PRN Reason: Nausea And Vomiting Simethicone (Mylicon) 80 mg CHEWED QIDP PRN PRN Reason: Dyspepsia Sodium Chloride (Saline Flush) 10 ml IV Q8 [facility] Last Admin: 05/12/17 15:02 Dose: 10 ml - Impressions Discussed w/ Dr. Kincaid IMPRESSION: 1. 9 mm serpiginous lesion in the right hepatic lobe which exhibits hyperenhancement only on arterial phase. 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 Suggest: Correlation with alpha- fetoprotein to ensure there is not marked elevation. Also suggest limited liver ultrasound to confirm this lesion has a arteriovenous fistula 2. Moderate cirrhotic changes with portal hypertension featuring enlarging the portal vein and tributaries, varices in the perigastric/splenic region and umbilical vein recanalization. The spleen is moderately enlarged. Moderate ascites 3. Cholelithiasis. Gallbladder and bile ducts are otherwise normal Medical - PN: A/P - Time Spent With Patient Total time spent is greater than 50% in coordination of care (as documented) at patient's floor/unit and/or counseling patient: 25 - 35 minutes (1) Cirrhosis of liver Status: Acute Current Visit: Yes (2) Acute hyperglycemia Status: Acute Current Visit: Yes (3) Esophageal varices determined by endoscopy Status: Acute Current Visit: Yes (4) Upper gastrointestinal hemorrhage Status: Acute Current Visit: Yes (5) Microcytic anemia Status: Chronic Current Visit: Yes - Narrative A/P Narrative: 1. GI. Patient presents with acute upper GI hemorrhage due to previously undiagnosed esophageal varices and cirrhosis. S/P banding 05/07. Transfused 4 units PRBC initially, Hb trended down to 7.6, now stable after 1 further unit PRBC 05/09. -Continue Nadolol 40 mg daily, titrate to HR 55. -Follow H/H. -Autoimmune/hepatitis workup suggests autoimmune cause of cirrhosis. Heb A/B/C negative. No indication for steroids currently as hepatitis has progressed to cirrhosis/end-stage disease. -Likely stable to discharge in 1-2 days -Advance to DM diet -Will need PCP to follow-up -Will follow-up with Dr. Liao in 1-2 weeks. -Sending CRP, ESR and quantitative IgG, IgA and IgM 2. Endocrine. Patient presented with severe hyperglycemia, new onset diabetes. -Initial hyperglycemia controlled after insulin, glucoses now running in the 100s. -Hemoglobin A1c 6.1, suggesting chronic mild hyperglycemia, likely can be managed with diet as an outpatient -Accu-Cheks and sliding scale insulin. -Diabetes education; advance to DM diet. 3. Hyponatremia. Probably pseudohyponatremia, due to hyperglycemia. Resolved. 4. Hypovolemic shock, resolved Patient presented with severe blood loss anemia, tachycardia, lactic acidosis. -s/p aggressive fluid resuscitation and transfusion. 5. CODE STATUS: Full code. She says her father will act as her POA. 6. DVT prophylaxis: SCDs. Medical - PN: Qual - VTE Deep Vein Thrombosis/Pulmonary Embolism Present on Admission: No
[2017-05-13] MEDS: 0.9 % SODIUM CHLORIDE 10 ML SYRINGE IV SCH (05:27)
[2017-05-13 06:42] LABS: Basophils # (Auto) 0 K/mcL (0.0-0.3); Basophils % (Auto) 0.5 % (0.0-2.0); Eosinophils # (Auto) 0.1 K/mcL (0.0-0.7); Eosinophils % (Auto) 2.1 % (0.0-7.0); Granulocytes % (Auto) 56.3 % (38.0-78.0); Lymphocytes # (Auto) 1.3 K/mcL (1.5-4.8); Mean Cell Volume 79.4 fL (80.0-100.0); Mean Corpuscular HGB Conc 32.2 g/dL (31.0-36.0); Mean Corpuscular Hemoglobin 25.6 pg (26.0-34.0); Monocytes # (Auto) 0.3 K/mcL (0.1-0.9); Monocytes % (Auto) 8.1 % (1.0-12.0); Platelet Count 108 K/mcL (140-440); RBC 3.65 M/mcL (4.00-5.20); Red Cell Distribution Width 25.9 % (11.5-14.5)
[2017-05-13 06:47] LABS: ALT/SGPT 87 U/l (0-40); Albumin 2.7 gm/dL (3.2-5.2); Alkaline Phosphatase 99 U/L (39-117); Bilirubin,Direct 0.3 mg/dL (0.0-0.3); Blood Urea Nitrogen 7 mg/dl (6-20); C-Reactive Protein 0.5 mg/dl (0.0-0.8); Gamma Glutamyl Transpeptidase 81 U/L (5-36); Magnesium 1.9 mg/dL (1.6-2.5)
[2017-05-13 07:02] LABS: Immunoglobulin A 169.4 mg/dl (70.0-400.0); Immunoglobulin G 988 mg/dl (700.0-1600.0); Immunoglobulin M 147.9 mg/dl (40.0-230.0)
[2017-05-13] MEDS: INSULIN LISPRO 1 UNIT/0.01 ML UNIT SQ SCH (07:30)
[2017-05-13] MEDS ORDERED: LACTULOSE 20 GM/30 ML ORAL.SOL PR SCH (09:00)
--- NOTE | 2017-05-13 09:30 | Discharge Summary ---
Medical - DS: Prov Patient information: Note initiated : 05/13/17 at 9:28 am Service Date, if different from initiated Date: [] Patient: Rona Rees a 47 y/o F admitted on 05/07/17 for Blood In Stool, Coughed Up Blood. Chief Complaint: Hematemesis Date of admission: 05/07/17 17:00 Discharge date: 05/13/17 Primary care physician: Establishing with MICHAEL Admitting clinician: Humaira Ramírez Consults: 05/07/17 16:47 Consult to Physician [CONS] Stat Comment: Consulting Provider: Humaira Ramírez Reason For Exam: Physician to Consult 05/08/17 22:13 Consult to Physician [CONS] Routine Comment: Consulting Provider: Drew Liao Reason For Exam: Physician to Consult Discharging clinician: Lexy Mccarthy Medical - DS: Meds - Discharge Medications Prescriptions: Nadolol [Corgard] 40 mg PO DAILY #30 tab Active and Home Medications: Home Medications No Known Home Meds [No Known Home Meds] 05/07/17 [History Confirmed 05/07/17 Last Taken Unknown] Medical - DS: Hosp Hospital course: Presentation: Ms. Rees is a 47 year old female with no known significant past medical problems. She reports that she has had some intermittent stomach discomfort since about November of this year. She is not sure if she might of had black stools in the past, but does not recall black or bloody stools. Four days prior to admission, she started to have severe vomiting. She says she vomited violently about 9 times. Each time she brought up bright red blood. She says that she felt very weak afterwards, but was home alone, and did not want to bother her father, who was on a hunting trip. She felt too weak to drive herself to the emergency room, so she waited until he got home today, and had him bring her in. ER evaluation showed tachycardia, tachypnea, hemoglobin of 3, MCV of 62, elevated lactic acid, marked hyperglycemia. The patient was resuscitated with fluids and O- blood in the ER, and then transferred to the intensive care unit. The patient denies the use of NSAIDs or aspirin. She drinks alcohol extremely rarely. She previously smoked from age 22 until age 45, and then quit 2 years ago. She does currently smoke E cigarettes. She does not use drugs. She otherwise notes she is cold all the time. She has had some mild shortness of breath on and off for several months. She notes only occasional upper abdominal discomfort, but no nausea and no vomiting until last weekend. She says she did have some sinus symptoms about 2 weeks ago, and went to see someone who prescribed doxycycline for possible sinus infection. He has been quite fatigued, and says she can hear the blood rushing in her ears at times. She has been feeling a little dizzy. She denies headaches, new eye or ear symptoms, sore throat or cough. He denies chest pain or palpitations. She denies dysuria Course: On the day of presentation, she underwent EGD by Dr. Liao revealing esophageal varices, as noted in his report above. She had multiple banding procedures. The patient received a total of 4 units of blood overnight the first night, then she received a fifth unit of packed red blood cells on the evening of hospital day 3. Hemoglobin remained stable after that. She had some chest pain post banding which resolved over the next few days. She was started on nadolol after receiving octreotide for prevention of further variceal bleeds. She is being discharged on a dose of 40 mg a day, had resting pulse in the low 60s. Goal would be to titrate further to a pulse of 55. She has been on the current dose for the last 2 days, suspect it'll be further effect as drug levels accumulate. Patient had no prior history of liver disease. Old records from 2008 were reviewed, from the [facility], showing a CT scan with normal liver and spleen at that time. That was for complaints of left lateral abdominal pain. AST was mildly elevated at 76, ALT at 89. She underwent CT scan this facility, revealing shrunken nodular liver consistent with cirrhosis and splenomegaly and varices consistent with portal hypertension. There is no evidence of portal vein thrombosis. There was a subcentimeter lesion in the right hepatic lobe, this was further characterized by MRI which showed consistent with an AVM. Alpha-fetoprotein was normal (3.5). Studies looking for etiology of her cirrhosis, revealed no evidence of viral hepatitis. ANAs screen was positive at 1:160, with a homogenous pattern. Actin IgG antibody was elevated at 49, more consistent with an autoimmune process. At this point, it's end-stage liver disease, there would be no utility in using steroids. Presentation the patient's glucose was over 600. She had no history of diabetes. This was rapidly controlled with insulin and remained in the low 100s. Hemoglobin A1c was 6.1%, indicating impaired fasting glucose and not diabetes. She continued to be followed by Dr. Piercetern will follow her post discharge. She is establishing with primary care later today after [facility] clinic. Depending on the patient's clinical course she may need referral for liver transplant evaluation in the near future. 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 POSTOPERATIVE DIAGNOSIS: Four columns of grade III esophageal varices with red antoine markings suggesting recent bleeding, but no gross blood in the upper GI tract and no gastric varices. Multiple variceal banding ligations performed. CT Abdomen and Pelvis 05/09/2017 IMPRESSION: 1. Severe cirrhotic changes with portal hypertension featuring dilatation the portal veins and varices in the perigastric perisplenic and peripancreatic regions. The spleen is moderately enlarged and there is moderate simple appearing ascites throughout the abdomen and pelvis. 2. 9.5 mm hyperenhancing lesion in the right hepatic lobe seen on portal venous phase and isointense on delayed images. This may represent a benign transient attenuation difference but a small hepatoma is also possible. Patient is at risk for hepatoma development. Suggest abdominal MRI 3. Cholelithiasis. Gallbladder is otherwise normal. There is mild dilatation of the common bile duct - 7 mm. No evidence of choledocholithiasis however. MRI Abdomen 05/11/2017 IMPRESSION: 1. 9 mm serpiginous lesion in the right hepatic lobe which exhibits hyperenhancement only on arterial phase. 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 Suggest: Correlation with alpha- fetoprotein to ensure there is not marked elevation. Also suggest limited liver ultrasound to confirm this lesion has a arteriovenous fistula 2. Moderate cirrhotic changes with portal hypertension featuring enlarging the portal vein and tributaries, varices in the perigastric/splenic region and umbilical vein recanalization. The spleen is moderately enlarged. Moderate ascites 3. Cholelithiasis. Gallbladder and bile ducts are otherwise normal - Time Spent with Patient Total time spent providing and/or coordinating discharge services: Greater than 30 minutes Medical - DS: Exam - Constitutional Vitals: Vital Signs Temp Pulse Pulse Resp BP Pulse Ox 05/13/17 07:58 98.3 F 78 14 115/76 05/13/17 04:00 98.4 F 65 14 100/68 97 05/13/17 00:00 96.9 F L 69 16 105/64 96 05/12/17 19:35 97.8 F 62 16 95/59 97 05/12/17 15:52 98.4 F 68 16 102/70 97 05/12/17 11:35 98.3 F 73 16 95/59 97 Intake and Output 05/12/17 05/13/17 05/13/17 21:59 05:59 13:59 Intake Total 680 / 680 300 / 300 Output Total 225 / 225 650 / 650 Balance 455 / 455 -350 / -350 Intake: Oral 680 / 680 300 / 300 Output: Void Amount 225 / 225 650 / 650 Other: Meal Dinner Percent of Meal Consumed 25% Feeding Ability Independent # Voids 1 1 # Bowel Movements 1 Weight 139 lb - Other Additional findings: General: Sitting up in bed in no acute distress Chest: Clear to auscultation, respirations unlabored Cardiovascular: Regular rate and rhythm, no peripheral edema. Abdomen: Soft, mildly distended, nontender, active bowel sounds. Neuro: Alert, oriented 3, no encephalopathy. Medical - DS: Data Procedures and tests throughout hospitalization: See above under pertinent results Labs on day of discharge: Labs from last 24 hours 05/13/17 05/13/17 05/13/17 04:06 04:06 04:06 WBC 3.9 L RBC 3.65 L Hgb 9.3 L Hct 29.0 L MCV 79.4 L MCH 25.6 L MCHC 32.2 RDW 25.9 H Plt Count 108 L MPV 8.7 Gran % 56.3 Lymph % (Auto) 33.0 [place] % (Auto) 8.1 Eos % (Auto) 2.1 Baso % (Auto) 0.5 Gran # 2.2 Lymph # (Auto) 1.3 L [place] # (Auto) 0.3 Eos # (Auto) 0.1 Baso # (Auto) 0 ESR 9 Sodium 136 Potassium 3.7 Chloride 103 Carbon Dioxide 22 Anion Gap 11.0 BUN 7 Creatinine 0.4 L GFR Calculation 125 Glucose 128 H Uric Acid 5.0 Calcium 7.9 L Phosphorus 3.7 Magnesium 1.9 Total Bilirubin 1.1 H Direct Bilirubin 0.3 GGT 81 H AST 69 H ALT 87 H Alkaline Phosphatase 99 Lactate Dehydrogenase 205 C-Reactive Protein 0.5 Total Protein 5.3 L Albumin 2.7 L Globulin 2.6 Albumin/Globulin Ratio 1.0 Triglycerides 66 IgG 988 IgA 169.4 IgM 147.9 Medical - DS: A/P - Patient/Caregiver Discharge Instructions Activity: increase activity as tolerated Diet: Regular Diet - Problem Maintenance (1) Cirrhosis of liver Status: Chronic Comment: Suspected due to autoimmune hepatitis Qualifiers: Hepatic cirrhosis type: other cirrhosis Qualified Code(s): K74.69 - Other cirrhosis of liver (2) Acute hyperglycemia Status: Resolved (3) Esophageal varices determined by endoscopy Status: Chronic Comment: On nadolol therapy (4) Upper gastrointestinal hemorrhage Status: Resolved Comment: Due to esophageal varicies (5) Microcytic anemia Status: Chronic (6) Esophageal varices with bleeding Status: Resolved Comment: Secondary to portal hypertension/cirrhosis Qualifiers: Esophageal varices type: secondary Qualified Code(s): I85.11 - Secondary esophageal varices with bleeding - Follow up Plan Follow up with: Drew Liao MD [Physician] - Ange Abreu ARNP [Nurse Practitioner] - 05/13/17 11:00 am (Please take packet to give to them.) Disposition: Home, Self-Care Prognosis: Serious Rehab Potential: Good Overall status at discharge: patient is progressing back to baseline Medical - DS: Qual - VTE Deep Vein Thrombosis/Pulmonary Embolism Present on Admission: No
[2017-05-13] MEDS: NADOLOL 20 MG TABLET PO SCH (09:40)
[2017-05-13] MEDS ORDERED: NADOLOL 20 MG TABLET PO ONE (15:35)
== END 2017-05-13 10:45 | disposition home or self-care (01) | DRG 441 ==
LOC: ED 14:53 → ICU 17:00 → ED 17:07 → ICU 05-10 16:00
PROVIDERS: ADMIT Internal Medicine; ATTEND Internal Medicine
PROC: EGDBAND (ICD-10-PCS; 2017-05-07 17:00)